=== PATIENT | female | born 1995 ===

== ENCOUNTER 2017-03-12 17:47 | Emergency (ER) | payer OTHER ==
[2017-03-12 17:47] VITALS: BMI 28.3
[2017-03-12 18:14] VITALS: BP 136/89; PULSE 72; RESP 16; TEMP 98.6; O2SAT 100
[2017-03-12] MEDS ORDERED: Morphine 4 mg/ml ISec IVP STA (19:28)
[2017-03-12 20:10] LABS: ADD MANUAL DIFF? NO
[2017-03-12 20:20] LABS: BASO # 0.02 K/mm3 (0.0-2.0); BASO % 0.3 % (0.0-3.0); EOS # 0.1 (0.0-0.7); EOS % 1.6 % (1.5-5.0); GRAN # 3.91 (1.4-6.5); GRAN % 61.8 % (50.0-68.0); HEMATOCRIT 39.5 % (36.0-48.0); LYMPH # 1.7 (1.2-3.4); LYMPH % 27.4 % (22.0-35.0); MEAN CELL VOLUME 88.8 fL (80.0-105.0); MEAN CORPUSCULAR HEMOGLOBIN 30.6 pg (25.0-35.0); MEAN CORPUSCULAR HGB CONC 34.4 g/dl (31.0-37.0); MEAN PLATELET VOLUME 10.4 fl (7.0-11.0); MONO # 0.6 (0.1-0.6); MONO % 8.9 % (1.0-6.0); PLATELET COUNT 220 10^3/uL (120.0-450.0); WHITE BLOOD COUNT 6.3 10^3/ul (4.5-11.0)
[2017-03-12 20:23] LABS: URINE APPEARANCE SL CLOUDY (CLEAR); URINE BILIRUBIN NEGATIVE (NEGATIVE); URINE BLOOD LARGE (NEGATIVE); URINE COLOR LIGHT RED (YELLOW); URINE GLUCOSE (UA) NEGATIVE (NEGATIVE); URINE KETONE TRACE mg/dL (NEGATIVE); URINE LEUKOCYTE ESTERASE TRACE Leu/uL (NEGATIVE); URINE PROTEIN 100 mg/dL (<30 mg/dL)
[2017-03-12 20:25] LABS: ALB/GLOB RATIO 1.2 (1.1-1.8); ALKALINE PHOSPHATASE 75 U/L (38-133); ALT/SGPT 28 U/L (7-56); AST/SGOT 24 U/L (15-39); BILIRUBIN,TOTAL 0.8 mg/dL (0.2-1.3); BLOOD UREA NITROGEN 10 mg/dL (7-21); CALCIUM 8.7 mg/dL (8.4-10.5); CARBON DIOXIDE 26 mmol/L (21-33); CHLORIDE 103 mmol/L (98-107); GFR AFRICAN-AMERICAN > 60; GLUCOSE,RANDOM 67 mg/dL (70-110); POTASSIUM 3.5 mmol/L (3.6-5.0); SODIUM 141 mmol/L (132-148); TOTAL PROTEIN 8.1 g/dL (5.8-8.3)
[2017-03-12 20:26] LABS: URINE BACTERIA MANY (NEG); URINE RBC TNTC /hpf (0-2)
[2017-03-12 20:27] LABS: URINE AMORPHOUS SEDIMENT FEW
--- NOTE | 2017-03-12 21:04 | ED PDOC ---
Arrival/HPI - General Chief Complaint: Female Genitourinary Time Seen by Provider: 03/12/17 19:09 Historian: Patient - History of Present Illness Narrative History of Present Illness (Text): 03/12/17 21:00 Patient complains of 1 day h/o vaginal spotting and lower abdominal pain, associated with nausea and dysuria. Otherwise: (-) vomiting, (-) diarrhea, (-) fever, (-) melena, (-) hematochezia. Of note, patient had a history of a termination of in June of last year. States that she believes she could be because she did a home test 2 weeks ago which was positive however prior to that she did have a home test that was also negative so she is not 100% sure whether she is or is not today. ELKE Browning Past Medical History - Provider Review Nursing Documentation Reviewed: Yes - Past History Past History: No Previous - Infectious Disease Hx of Infectious Diseases: None - Tetanus Immunization Tetanus Immunization: Up to Date - Reproductive Menopause: No - Past Medical History Past Medical History: No Previous - Cardiac Hx Cardiac Disorders: No - Pulmonary Hx Respiratory Disorders: Yes Hx Asthma: Yes - Neurological Hx Neurological Disorder: No - HEENT Hx HEENT Disorder: No - Renal Hx Renal Disorder: No - Endocrine/Metabolic Hx Endocrine Disorders: No - Hematological/Oncological Hx Blood Disorders: No - Integumentary Hx Dermatological Disorder: No - Musculoskeletal/Rheumatological Hx Musculoskeletal Disorders: No - Gastrointestinal Hx Gastrointestinal Disorders: No - Genitourinary/Gynecological Hx Genitourinary Disorders: No - Psychiatric Hx Psychophysiologic Disorder: No Hx Anxiety: No Hx Bipolar Disorder: No Hx Depression: No Hx Emotional Abuse: No Hx Hallucinations: No Hx Panic Disorder: No Hx Post Traumatic Stress Disorder: No Hx Psychosis: No Hx Physical Abuse: No Hx Schizophrenia: No Hx Sexual Abuse: No Hx Substance Use: No - Past Surgical History Past Surgical History: No Previous - Anesthesia Hx Anesthesia: Yes Hx Anesthesia Reactions: No Hx Malignant Hyperthermia: No - Suicidal Assessment Feels Threatened In Home Enviroment: No Family/Social History - Physician Review Nursing Documentation Reviewed: Yes Family/Social History: No Known Family HX Smoking Status: Never Smoked Hx Alcohol Use: No Hx Substance Use: No Hx Substance Use Treatment: No Allergies/Home Meds Allergies/Adverse Reactions: Allergies prochlorperazine [From Compazine] Allergy (Verified 03/12/17 18:14) RASH prochlorperazine edisylate [From Compazine] Allergy (Verified 03/12/17 18:14) RASH prochlorperazine maleate [From Compazine] Allergy (Verified 03/12/17 18:14) RASH Home Medications: Home Meds Medication Instructions Recorded Confirmed Albuterol HFA [Ventolin HFA 90 0.09 mg IH PRN PRN 03/12/17 03/12/17 mcg/actuation (8 g)] Review of Systems - Review of Systems Constitutional: Normal. absent: Fatigue, Weight Change, Fevers Respiratory: Normal. absent: SOB, Cough, Sputum Cardiovascular: Normal. absent: Chest Pain, Palpitations, Edema Gastrointestinal: Normal, Abdominal Pain, Nausea. absent: Stool Changes, Constipation Genitourinary Female: Normal, Dysuria. absent: Frequency, Hematuria Musculoskeletal: Normal. absent: Arthralgias, Back Pain, Neck Pain Skin: Normal. absent: Rash, Pruritis, Skin Lesions Physical Exam - Physical Exam Narrative Physical Exam (Text): 03/12/17 21:03 GENERAL APPEARANCE: Patient is awake, alert, oriented x 3, in mild painful distress. SKIN: Warm, dry; (-) cyanosis. EYES: (-) conjunctival pallor, (-) scleral icterus. ENMT: Mucous membranes moist. NECK: (-) tenderness, (-) stiffness, (-) lymphadenopathy. CHEST AND RESPIRATORY: (-) rales, (-) rhonchi, (-) wheezes; breath sounds equal bilaterally. HEART AND CARDIOVASCULAR: (-) irregularity; (-) murmur, (-) gallop. ABDOMEN AND GI: (-) distention. Bowel sounds active; (+) mild lower abdominal tenderness, (-) guarding, (-) rebound, (-) palpable masses, (-) CVA tenderness. EXTREMITIES: (-) deformity, (-) edema, (+) distal pulses. NEURO AND PSYCH: Mental status as above; (-) focal findings. Vital Signs Temp Pulse Resp BP Pulse Ox 03/12/17 18:09 98.6 F 72 16 136/89 100 Medical Decision Making ED Course and Treatment: 03/12/17 21:04 21 yo F presents with 1 day h/o vaginal bleeding and lower abdominal pain. Plan: -- Labs -- Uhcg -- Urinalysis -- Morphine / Zofran -- Reassess and disposition On reevaluation, patient reports improvement of pain. On exam, patient is laying in bed comfortably in no acute distress. Abdomen is soft with no tenderness. Uhcg (-). UA noted to have (+) UTI, rest of the labs reviewed and are wnl. Urine culture pending. Based on history, exam and diagnostic results plan will be for outpatient follow -up with PMD. Prescription provided. Patient states she fully agrees with and understands discharge instructions. States that she agrees with the plan and disposition. Verbalized and repeated discharge instructions and plan. I have given the patient opportunity to ask any additional questions. Follow up with primary care physician in 1-2 days without fail. Advised to take medication as prescribed. Return to the emergency room at any time for any new or worsening symptoms. - Lab Interpretations Lab Results: 03/12/17 19:55 03/12/17 19:55 Lab Results 03/12/17 20:32: Blood Type Confirm O POSITIVE 03/12/17 19:55: Blood Type O POSITIVE, Antibody Screen Negative, BBK History Checked No verified bt 03/12/17 19:55: Beta HCG, Quant < 2.39 03/12/17 19:55: Sodium 141, Potassium 3.5 L, Chloride 103, Carbon Dioxide 26, Anion Gap 16, BUN 10, Creatinine 0.6, Est GFR ( Amer) > 60, Est GFR (Non- Af Amer) > 60, Random Glucose 67 L, Calcium 8.7, Total Bilirubin 0.8, AST 24, ALT 28, Alkaline Phosphatase 75, Total Protein 8.1, Albumin 4.3, Globulin 3.7, Albumin/Globulin Ratio 1.2 03/12/17 19:55: Urine Color Light red, Urine Appearance Sl cloudy, Urine pH 7.0 , Ur Specific [place] 1.025, Urine Protein 100 H, Urine Glucose (UA) Negative, Urine Ketones Trace H, Urine Blood Large H, Urine Nitrate Negative, Urine Bilirubin Negative, Urine Urobilinogen 1.0 H, Ur Leukocyte Esterase Trace H, Urine RBC Tntc, Urine WBC 5 - 10, Ur Epithelial Cells 6 - 8, Amorphous Sediment Few, Urine Bacteria Many, Urine Other Uyeast 03/12/17 19:55: WBC 6.3, RBC 4.45, Hgb 13.6, Hct 39.5, MCV 88.8, MCH 30.6, MCHC 34.4, RDW 13.0, Plt Count 220, MPV 10.4, Gran % 61.8, Lymph % (Auto) 27.4, [place] % (Auto) 8.9 H, Eos % (Auto) 1.6, Baso % (Auto) 0.3, Gran # 3.91, Lymph # 1.7, [place] # 0.6, Eos # 0.1, Baso # 0.02 - Medication Orders Current Medication Orders: Discontinued Medications Morphine Sulfate (Morphine) 4 mg IVP STAT STA Stop: 03/12/17 19:29 Last Admin: 03/12/17 20:09 Dose: 4 mg Re-Assess: KATHARINE Pain Assessment Document 03/12/17 21:09 OCS (Rec: 03/12/17 22:31 OCS [id number]) Pain Reassessment Is this a pain reassessment? No Nitrofurantoin Macrocrystals (Macrobid) 100 mg PO ONCE ONE Stop: 03/12/17 21:08 Last Admin: 03/12/17 22:31 Dose: 100 mg Ondansetron HCl (Zofran Inj) 4 mg IVP STAT STA Stop: 03/12/17 19:29 Last Admin: 03/12/17 20:09 Dose: 4 mg - PA / RN TELE / Resident Statement / has reviewed & agrees with the documentation as recorded. Disposition/Present on Arrival - Present on Arrival Any Indicators Present on Arrival: No History of DVT/PE: No History of Uncontrolled Diabetes: No Urinary Catheter: No History of Decub. Ulcer: No History Surgical Site Infection Following: None - Disposition Have Diagnosis and Disposition been Completed?: Yes Diagnosis: Abdominal pain, UTI (urinary tract infection) Disposition: HOME/ ROUTINE Disposition Time: 21:09 Patient Plan: Discharge Condition: STABLE Discharge Instructions (ExitCare): Urinary Tract Infection in Women (ED), Acute Abdominal Pain (ED) Print Language: GIBR[place]AR[place] Additional Instructions: Thank you for letting us take care of you today. You were treated for abdominal pain, UTI. The emergency medical care you received today was directed at your acute symptoms. If you were prescribed any medication, please fill it and take as directed. It may take several days for your symptoms to resolve. Return to the Emergency Department if your symptoms worsen, do not improve, or if you have any other problems. Please contact your doctor in 2 days for re-evaluation and follow up. Bring any paperwork you were given at discharge with you along with any medications you are taking to your follow up visit. Our treatment cannot replace ongoing medical care by a primary care provider (PCP) outside of the emergency department. Thank you for allowing the [facility] team to be part of your care today. Prescriptions: Nitrofurantoin Macrocrystals [Macrobid] 100 mg PO BID #20 cap Referrals: Lai Browning [Primary Care Provider] - Follow up with primary Forms: SCHOOL NOTE, WORK NOTE
== END 2017-03-12 22:35 | disposition home or self-care (01) ==
LOC: ED 17:47
DX: N39.0 Urinary tract infection, site not specified (principal); R10.9 Unspecified abdominal pain
CPT/HCPCS: 80053; 81001; 84702; 85025; 86850; 86900; 87086; 96374; 96375; 99283; J2270; J2405

== ENCOUNTER 2017-07-17 09:14 | Observation (INO) | payer OTHER ==
[2017-07-17 09:19] VITALS: BMI 28.9
[2017-07-17 09:29] VITALS: O2SAT 100
[2017-07-17] MEDS ORDERED: Sodium Chloride 0.9% 1,000 ML IV STA (09:32)
--- NOTE | 2017-07-17 09:51 | ED PDOC ---
Arrival/HPI - General Chief Complaint: Abdominal Pain Time Seen by Provider: 07/17/17 09:31 Historian: Patient - History of Present Illness Narrative History of Present Illness (Text): 07/17/17 09:47 21-year-old female presents today with 5 day history of worsening left lower quadrant abdominal pain. Patient is complaining of nausea vomiting and many episodes of diarrhea as well as urinary frequency. She denies vaginal bleeding. She is complaining of left flank pain. Patient is complaining of dyspareunia. pt states pain started in LLQ and now is throughout the whole abdomen. Time/Duration: Other (5 days) Symptom Onset: Gradual Symptom Course: Worsening Quality: Aching Severity Level: 7 Past Medical History - Provider Review Nursing Documentation Reviewed: Yes - Travel History Have you recently traveled outside [place] w/in the past 3 mons?: No - Past History Past History: No Previous - Infectious Disease Hx of Infectious Diseases: None - Tetanus Immunization Tetanus Immunization: Up to Date - Past Medical History Past Medical History: No Previous - Cardiac Hx Cardiac Disorders: No - Pulmonary Hx Respiratory Disorders: Yes Hx Asthma: Yes - Neurological Hx Neurological Disorder: No - HEENT Hx HEENT Disorder: No - Renal Hx Renal Disorder: No - Endocrine/Metabolic Hx Endocrine Disorders: No - Hematological/Oncological Hx Blood Disorders: No - Integumentary Hx Dermatological Disorder: No - Musculoskeletal/Rheumatological Hx Musculoskeletal Disorders: No - Gastrointestinal Hx Gastrointestinal Disorders: No - Genitourinary/Gynecological Hx Genitourinary Disorders: No - Psychiatric Hx Psychophysiologic Disorder: No Hx Anxiety: No Hx Bipolar Disorder: No Hx Depression: No Hx Emotional Abuse: No Hx Hallucinations: No Hx Panic Disorder: No Hx Post Traumatic Stress Disorder: No Hx Psychosis: No Hx Physical Abuse: No Hx Schizophrenia: No Hx Sexual Abuse: No Hx Substance Use: No - Past Surgical History Past Surgical History: No Previous - Anesthesia Hx Anesthesia: Yes Hx Anesthesia Reactions: No Hx Malignant Hyperthermia: No - Suicidal Assessment Feels Threatened In Home Enviroment: No Family/Social History - Physician Review Nursing Documentation Reviewed: Yes Family/Social History: Unknown Family HX Smoking Status: Never Smoked Hx Alcohol Use: No Hx Substance Use: No Hx Substance Use Treatment: No Allergies/Home Meds Allergies/Adverse Reactions: Allergies prochlorperazine [From Compazine] Allergy (Verified 07/17/17 09:19) RASH prochlorperazine edisylate [From Compazine] Allergy (Verified 07/17/17 09:19) RASH prochlorperazine maleate [From Compazine] Allergy (Verified 07/17/17 09:19) RASH Home Medications: Home Meds Medication Instructions Recorded Confirmed Albuterol HFA [Ventolin HFA 90 0.09 mg IH PRN PRN 03/12/17 07/17/17 mcg/actuation (8 g)] Review of Systems - Review of Systems Constitutional: absent: Fatigue, Fevers Respiratory: absent: SOB, Cough Cardiovascular: absent: Chest Pain, Palpitations Gastrointestinal: Abdominal Pain, Diarrhea, Nausea, Vomiting Genitourinary Female: Frequency. absent: Dysuria, Hematuria, Urine Output Changes, Vaginal Bleeding, Vaginal Discharge Musculoskeletal: Back Pain. absent: Arthralgias, Neck Pain Skin: absent: Rash, Pruritis Neurological: absent: Headache, Dizziness Psychiatric: absent: Anxiety, Depression Physical Exam Vital Signs Reviewed: Yes Vital Signs Temp Pulse Resp BP Pulse Ox 07/17/17 13:00 65 18 118/81 100 07/17/17 11:52 63 18 116/83 100 07/17/17 11:30 79 18 132/86 100 07/17/17 09:23 98.2 F 88 19 134/95 H 100 Temperature: Afebrile Blood Pressure: Hypertensive Pulse: Regular Respiratory Rate: Normal Appearance: Positive for: Well-Appearing, Non-Toxic, Comfortable Pain Distress: None Mental Status: Positive for: Alert and Oriented X 3 - Systems Exam Head: Present: Atraumatic Mouth: Present: Moist Mucous Membranes Neck: Present: Normal Range of Motion Respiratory/Chest: Present: Clear to Auscultation, Good Air Exchange. No: Respiratory Distress, Accessory Muscle Use Cardiovascular: Present: Regular Rate and Rhythm, Normal S1, S2. No: Murmurs Abdomen: Present: Tenderness (ruq, llq suprapubic tenderness. ), Normal Bowel Sounds, Guarding. No: Distention, Peritoneal Signs Genitourinary/Pelvic Exam: Present: Normal External Genitalia, Vaginal Discharge (white discharge), Adenexal Tenderness (Left adnexal tenderness), Cervical os Closed, Other (chaparoned by Janie GEE). No: Vaginal Bleeding , Vaginal Lesions, Cervical Motion Tendernes, Odor Back: Present: Normal Inspection. No: CVA Tenderness, Midline Tenderness Upper Extremity: Present: Normal Inspection Lower Extremity: Present: Normal Inspection. No: Edema Neurological: Present: GCS=15 Skin: Present: Warm, Dry, Normal Color. No: Rashes Psychiatric: Present: Alert, Oriented x 3 Medical Decision Making ED Course and Treatment: 07/17/17 09:55 Patient is nontoxic well appearing with stable vital signs presenting with severe abdominal pain, intermittent, worsening with n/v. toradol given for pain NS iv bolus given CBC wnl CMP wnl albumin; 5.1 Lipase WNL Urinalysis wnl Ultrasound:FINDINGS: UTERUS: Measures 9.3 x 4.0 x 6.4 cm. Normal in size and appearance. No fibroid or other mass lesion seen. ENDOMETRIUM: Measures 12 mm in diameter. Unremarkable. CERVIX: No cervical abnormality identified. RIGHT OVARY: Measures 2.8 x 1.9 x 2.7 cm. No solid mass. Normal flow. Right ovarian parenchyma appears unremarkable. LEFT OVARY: Measures 3.9 x 3.9 x 4.1 cm. There is a complex cyst with numerous septations within the left ovary measuring 2.6 x 2.3 x 2.9 in total. This lesion mildly enlarges the left ovary and limited increased color Doppler blood flow seen in the periphery of the lesion. This may represent a subacute or early chronic hemorrhagic cyst although endometrioma and other etiologies are possible. Follow -up transvaginal pelvic ultrasound is advised in 6-8 weeks. Remainder left ovary appears unremarkable. Intra-ovarian arterial blood was identified and ovarian torsion is not favored. FREE FLUID: No significant free fluid noted. OTHER FINDINGS: None. IMPRESSION: 1. 2.9 cm complex cyst identified in the left ovary which corresponds well to the CT finding of a left adnexal cyst of similar size. Etiology is discussed above. Follow-up transvaginal pelvic ultrasound is advised 6-8 weeks as well as clinical correlation. 2. Remainder the examination is unremarkable. CAT scan: FINDINGS: LOWER THORAX: Unremarkable. LIVER: Unremarkable. No gross lesion or ductal dilatation. GALLBLADDER AND BILE DUCTS: Unremarkable. PANCREAS: Unremarkable. No gross lesion or ductal dilatation. SPLEEN: Unremarkable. ADRENALS: Unremarkable. No mass. KIDNEYS AND URETERS: Unremarkable. No hydronephrosis. No solid mass. VASCULATURE: Unremarkable. No aortic aneurysm. BOWEL: Evaluation the bowel is compromised by lack of oral contrast agents. No bowel obstruction measure edema, ascites or free intrarenal gas identified at this time however. APPENDIX: Appendix not identified. Fluid-filled small bowel loops in the right hemipelvis/ right lower quadrant abdomen with no definitive pattern of suggest appendicitis at this time. Clinically correlate nevertheless. PERITONEUM: As above in bowel section. LYMPH NODES: Unremarkable. No enlarged lymph nodes. BLADDER: Unremarkable. REPRODUCTIVE: A left adnexal cyst measures 3.1 x 2.3 cm with the bilateral adnexal compartments otherwise unremarkable. Inhomogeneous enhancement is seen in the uterus corresponding to a complex cyst seen in ultrasound exam also performed . Please see separate report. BONES: No acute fracture. OTHER FINDINGS: None. IMPRESSION: 1. 3.1 cm cyst is identified at the left adnexal compartment which is better seen in separate transvaginal pelvic ultrasound also performed 07/17/2017 where it appears to be a complex cyst. Please see separate report. 2. No bowel or urinary tract obstruction, free intrarenal gas or ascites. 3. Appendix not identified. No definitive CT pattern appendicitis at this time however clinical correlation is advised. Patient reassessment: pt with continued pain, morphine and zofran given. pt seen and evaluated by dr. xiong; case discussed with dr. mota in depth; regarding large ovarian cyst with intractable abdominal pain. He will see the patient in the hospital today after office hours. case discussed with dr. oquendo accepts observational status admission with [employer] DEPARTMENT OPERATOR consult (dr. Mota). Discussed all results with patient in depth impression; intractable abdominal pain observational status to med/surg with WHE[employer] DEPARTMENT OPERATOR consult. - Lab Interpretations Lab Results: 07/17/17 09:56 07/17/17 09:56 Lab Results 07/17/17 09:56: WBC 6.8, RBC 4.72, Hgb 14.3, Hct 40.6, MCV 86.0, MCH 30.3, MCHC 35.2, RDW 12.7, Plt Count 218, MPV 9.7, Gran % 68.2 H, Lymph % (Auto) 21.0 L, [place] % (Auto) 10.3 H, Eos % (Auto) 0.4 L, Baso % (Auto) 0.1, Gran # 4.63, Lymph # 1.4, [place] # 0.7 H, Eos # 0.0, Baso # 0.01 07/17/17 09:56: Sodium 141, Potassium 3.9, Chloride 102, Carbon Dioxide 25, Anion Gap 18, BUN 10, Creatinine 0.7, Est GFR ( Amer) > 60, Est GFR (Non- Af Amer) > 60, Random Glucose 85, Calcium 9.5, Total Bilirubin 1.9 H, AST 22, ALT 25, Alkaline Phosphatase 84, Total Protein 8.1, Albumin 5.1 H, Globulin 3.0 , Albumin/Globulin Ratio 1.7, Lipase 26 07/17/17 09:50: Urine Color Yellow, Urine Appearance Clear, Urine pH 6.0, Ur Specific [place] >= 1.030, Urine Protein Negative, Urine Glucose (UA) Negative, Urine Ketones Negative, Urine Blood Negative, Urine Nitrate Negative, Urine Bilirubin Negative, Urine Urobilinogen 0.2, Ur Leukocyte Esterase Negative - RAD Interpretation Radiology Orders: 07/17/17 09:51 CHEST PORTABLE [RAD] Stat 07/17/17 10:07 ABD & PELVIS IV CONTRAST ONLY [CT] Stat 07/17/17 10:51 TRANSVAGINAL [US] Stat - Medication Orders Current Medication Orders: Discontinued Medications Sodium Chloride (Sodium Chloride 0.9%) 1,000 mls @ 999 mls/hr IV .Q1H1M STA Stop: 07/17/17 10:32 Last Admin: 07/17/17 10:00 Dose: 999 mls/hr Iohexol (Omnipaque 350 100 Ml) Confirm Administered Dose 350 mg .ROUTE .STK-MED ONE Stop: 07/17/17 10:59 Ketorolac Tromethamine (Toradol) 30 mg IVP STAT STA Stop: 07/17/17 10:09 Last Admin: 07/17/17 10:53 Dose: 30 mg Re-Assess: MAR Pain Assessment Document 07/17/17 11:53 OCS (Rec: 07/17/17 12:37 OCS [id number]) Pain Reassessment Is this a pain reassessment? Yes Sleep Is patient sleeping during reassessment? Yes Morphine Sulfate (Morphine) 4 mg IVP STAT STA Stop: 07/17/17 13:35 Last Admin: 07/17/17 13:50 Dose: 4 mg Ondansetron HCl (Zofran Inj) 4 mg IVP STAT STA Stop: 07/17/17 13:35 Last Admin: 07/17/17 13:50 Dose: 4 mg Disposition/Present on Arrival - Present on Arrival Any Indicators Present on Arrival: No History of DVT/PE: No History of Uncontrolled Diabetes: No Urinary Catheter: No History of Decub. Ulcer: No History Surgical Site Infection Following: None - Disposition Have Diagnosis and Disposition been Completed?: Yes Diagnosis: Intractable abdominal pain, Ovarian cyst Disposition: HOSPITALIZED Disposition Time: 14:00 Patient Plan: Observation Patient Problems: Current Active Problems Problem Status Onset Intractable abdominal pain Acute Ovarian cyst Acute Condition: FAIR
[2017-07-17 10:07] LABS: URINE BILIRUBIN NEGATIVE (NEGATIVE); URINE BLOOD NEGATIVE (NEGATIVE); URINE GLUCOSE (UA) NEGATIVE (NEGATIVE); URINE KETONE NEGATIVE (NEGATIVE); URINE LEUKOCYTE ESTERASE NEGATIVE Leu/uL (NEGATIVE); URINE PROTEIN NEGATIVE mg/dL (<30 mg/dL); URINE UROBILINOGEN 0.2 E.U./dL (<1 E.U./dL)
[2017-07-17 10:08] LABS: URINE APPEARANCE CLEAR (CLEAR); URINE COLOR YELLOW (YELLOW)
[2017-07-17 10:13] LABS: BASO # 0.01 K/mm3 (0.0-2.0); BASO % 0.1 % (0.0-3.0); EOS % 0.4 % (1.5-5.0); GRAN # 4.63 (1.4-6.5); GRAN % 68.2 % (50.0-68.0); HEMATOCRIT 40.6 % (36.0-48.0); LYMPH # 1.4 (1.2-3.4); MEAN CORPUSCULAR HEMOGLOBIN 30.3 pg (25.0-35.0); MEAN CORPUSCULAR HGB CONC 35.2 g/dl (31.0-37.0); MEAN PLATELET VOLUME 9.7 fl (7.0-11.0); MONO # 0.7 (0.1-0.6); MONO % 10.3 % (1.0-6.0); RED CELL DISTRIBUTION WIDTH 12.7 % (11.5-14.5); WHITE BLOOD COUNT 6.8 10^3/ul (4.5-11.0)
[2017-07-17 10:18] LABS: ALB/GLOB RATIO 1.7 (1.1-1.8); ALKALINE PHOSPHATASE 84 U/L (38-133); ALT/SGPT 25 U/L (7-56); AST/SGOT 22 U/L (15-39); BILIRUBIN,TOTAL 1.9 mg/dL (0.2-1.3); BLOOD UREA NITROGEN 10 mg/dL (7-21); CALCIUM 9.5 mg/dL (8.4-10.5); CARBON DIOXIDE 25 mmol/L (21-33); CHLORIDE 102 mmol/L (98-107); GFR AFRICAN-AMERICAN > 60; GLUCOSE,RANDOM 85 mg/dL (70-110); LIPASE 26 U/L (23-300); POTASSIUM 3.9 mmol/L (3.6-5.0); SODIUM 141 mmol/L (132-148); TOTAL PROTEIN 8.1 g/dL (5.8-8.3)
[2017-07-17] MEDS ORDERED: Iohexol 350 MG/100 ML VIAL ONE (10:58)
--- NOTE | 2017-07-17 11:08 | RAD ---
HISTORY: diffuse abdominal tenderness COMPARISON: No prior. FINDINGS: LUNGS: No active pulmonary disease. PLEURA: No significant pleural effusion identified, no pneumothorax apparent. CARDIOVASCULAR: Normal. OSSEOUS STRUCTURES: No significant abnormalities. VISUALIZED UPPER ABDOMEN: Normal. OTHER FINDINGS: None. IMPRESSION: No active disease.
--- NOTE | 2017-07-17 12:27 | CT ---
PROCEDURE: CT Abdomen and Pelvis with contrast HISTORY: abd pain COMPARISON: None. TECHNIQUE: Contrast dose: Omnipaque 350, 100 cc Radiation dose: Total exam DLP = 553 mGy-cm. This CT exam was performed using one or more of the following dose reduction techniques: Automated exposure control, adjustment of the mA and/or kV according to patient size, and/or use of iterative reconstruction technique. FINDINGS: LOWER THORAX: Unremarkable. LIVER: Unremarkable. No gross lesion or ductal dilatation. GALLBLADDER AND BILE DUCTS: Unremarkable. PANCREAS: Unremarkable. No gross lesion or ductal dilatation. SPLEEN: Unremarkable. ADRENALS: Unremarkable. No mass. KIDNEYS AND URETERS: Unremarkable. No hydronephrosis. No solid mass. VASCULATURE: Unremarkable. No aortic aneurysm. BOWEL: Evaluation the bowel is compromised by lack of oral contrast agents. No bowel obstruction measure edema, ascites or free intrarenal gas identified at this time however. APPENDIX: Appendix not identified. Fluid-filled small bowel loops in the right hemipelvis/right lower quadrant abdomen with no definitive pattern of suggest appendicitis at this time. Clinically correlate nevertheless. PERITONEUM: As above in bowel section. LYMPH NODES: Unremarkable. No enlarged lymph nodes. BLADDER: Unremarkable. REPRODUCTIVE: A left adnexal cyst measures 3.1 x 2.3 cm with the bilateral adnexal compartments otherwise unremarkable. Inhomogeneous enhancement is seen in the uterus corresponding to a complex cyst seen in ultrasound exam also performed 07/17/2017. Please see separate report. BONES: No acute fracture. OTHER FINDINGS: None. IMPRESSION: 1. 3.1 cm cyst is identified at the left adnexal compartment which is better seen in separate transvaginal pelvic ultrasound also performed 07/17/2017 where it appears to be a complex cyst. Please see separate report. 2. No bowel or urinary tract obstruction, free intrarenal gas or ascites. 3. Appendix not identified. No definitive CT pattern appendicitis at this time however clinical correlation is advised.
--- NOTE | 2017-07-17 12:33 | US ---
HISTORY: pelvic pain/llq COMPARISON: CT examination 07/17/2017 TECHNIQUE: Transvaginal pelvic ultrasonography was performed with supplementary transabdominal technique also performed. FINDINGS: UTERUS: Measures 9.3 x 4.0 x 6.4 cm. Normal in size and appearance. No fibroid or other mass lesion seen. ENDOMETRIUM: Measures 12 mm in diameter. Unremarkable. CERVIX: No cervical abnormality identified. RIGHT OVARY: Measures 2.8 x 1.9 x 2.7 cm. No solid mass. Normal flow. Right ovarian parenchyma appears unremarkable. LEFT OVARY: Measures 3.9 x 3.9 x 4.1 cm. There is a complex cyst with numerous septations within the left ovary measuring 2.6 x 2.3 x 2.9 in total. This lesion mildly enlarges the left ovary and limited increased color Doppler blood flow seen in the periphery of the lesion. This may represent a subacute or early chronic hemorrhagic cyst although endometrioma and other etiologies are possible. Follow-up transvaginal pelvic ultrasound is advised in 6-8 weeks. Remainder left ovary appears unremarkable. Intra-ovarian arterial blood was identified and ovarian torsion is not favored. FREE FLUID: No significant free fluid noted. OTHER FINDINGS: None. IMPRESSION: 1. 2.9 cm complex cyst identified in the left ovary which corresponds well to the CT finding of a left adnexal cyst of similar size. Etiology is discussed above. Follow-up transvaginal pelvic ultrasound is advised 6-8 weeks as well as clinical correlation. 2. Remainder the examination is unremarkable.
[2017-07-17] MEDS ORDERED: Morphine 4 mg/ml ISec IVP STA (13:34)
[2017-07-17] MEDS ORDERED: Albuterol HFA 90 mcg/actuation (8 g) IH PRN (15:33)
[2017-07-17] MEDS ORDERED: Morphine 2 mg/ml ISec IVP PRN (15:35)
[2017-07-17] MEDS ORDERED: Albuterol 0.083% Inhal Sol (2.5 mg/3 mL) UD IH PRN (15:40)
[2017-07-17] MEDS ORDERED: Pneumococcal 23-Valent Vaccine IM ONE (15:44)
[2017-07-17] MEDS: Sodium Chloride 0.9% 1,000 ML IV SCH (15:52)
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
--- NOTE | 2017-07-17 19:26 | CP.PCM.CON ---
History of Present Illness - History of Present Illness History of Present Illness: Called to see a 21yo , admitted earlier for symptoms with gastroenteritis. The CT scan and Pelvic sonogram had depicted an normal sized ovarian cyst. Pt reports that is the first episode of above. She denies any recent h/o STD, She is sexually active without contraception. No history of pelvic surgery except an elective Ab X1. Pt reports that pain has subsided since she was admitted. Review of Systems - Reproductive: Female Reproductive:Female: Menses 1-7 Days, Normal Menses Past Patient History - Infectious Disease Hx of Infectious Diseases: None - Tetanus Immunizations Tetanus Immunization: Up to Date - Past Social History Smoking Status: Never Smoked - CARDIAC Hx Cardiac Disorders: No - PULMONARY Hx Respiratory Disorders: Yes Hx Asthma: Yes - NEUROLOGICAL Hx Neurological Disorder: No - HEENT Hx HEENT Problems: No - RENAL Hx Chronic Kidney Disease: No - ENDOCRINE/METABOLIC Hx Endocrine Disorders: No - HEMATOLOGICAL/ONCOLOGICAL Hx Blood Disorders: No - INTEGUMENTARY Hx Dermatological Problems: No - MUSCULOSKELETAL/RHEUMATOLOGICAL Hx Musculoskeletal Disorders: No - GASTROINTESTINAL Hx Gastrointestinal Disorders: No - GENITOURINARY/GYNECOLOGICAL Hx Genitourinary Disorders: No - PSYCHIATRIC Hx Psychophysiologic Disorder: No Hx Anxiety: No Hx Bipolar Disorder: No Hx Depression: No Hx Emotional Abuse: No Hx Hallucinations: No Hx Panic Symptoms: No Hx Post Traumatic Stress Disorder: No Hx Psychosis: No Hx Physical Abuse: No Hx Schizophrenia: No Hx Sexual Abuse: No Hx Substance Use: No - SURGICAL HISTORY Hx Surgeries: No - ANESTHESIA Hx Anesthesia: Yes Hx Anesthesia Reactions: No Hx Malignant Hyperthermia: No Meds Allergies/Adverse Reactions: Allergies Allergy/AdvReac Type Severity Reaction Status Date / Time prochlorperazine Allergy RASH Verified 07/17/17 09:19 [From Compazine] prochlorperazine edisylate Allergy RASH Verified 07/17/17 09:19 [From Compazine] prochlorperazine maleate Allergy RASH Verified 07/17/17 09:19 [From Compazine] - Medications Medications: Current Medications Albuterol Sulfate (Albuterol 0.083% Inhal Josey (2.5 Mg/3 Ml) Ud) 2.5 mg IH [id number] PRN PRN Reason: Cough and congestion Docusate Sodium (Colace) 100 mg PO DAILY RUPERT Famotidine (Pepcid) 20 mg PO 1000,2200 [facility] Sodium Chloride (Sodium Chloride 0.9%) 1,000 mls @ 100 mls/hr IV .Q10H RUPERT Last Admin: 07/17/17 15:52 Dose: 100 mls/hr Morphine Sulfate (Morphine) 1 mg IVP STAT PRN PRN Reason: Pain, moderate (4-7) Ondansetron HCl (Zofran Inj) 4 mg IVP Q4H PRN PRN Reason: Nausea/Vomiting Physical Exam - Respiratory Exam Respiratory Exam: Clear to Auscultation Bilateral, NORMAL BREATHING PATTERN - Cardiovascular Exam Cardiovascular Exam: REGULAR RHYTHM - GI/Abdominal Exam GI & Abdominal Exam: Normal Bowel Sounds Additional comments: No rebound tenderness - Exam Exam: NORMAL INSPECTION External exam: NORMAL EXTERNAL EXAM Bimanual exam: NORMAL BIMANUAL EXAM Additional comments: Negative cervical motion Tenderness - Extremities Exam Extremities exam: Positive for: normal inspection - Neurological Exam Neurological exam: Alert, Oriented x3 Results - Vital Signs Recent Vital Signs: Last Vital Signs Temp 98.5 F 07/17/17 16:00 Pulse 62 07/17/17 16:00 Resp 18 07/17/17 16:00 BP 118/74 07/17/17 16:00 Pulse Ox 100 07/17/17 16:00 - Labs Result Diagrams: 07/17/17 09:56 07/17/17 09:56 Assessment & Plan - Assessment and Plan (Free Text) 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 Gynecologically cleared for discharge. F/U with Dr Mota, [address] [place] [address]. Phone- [phone]; - Date & Time Date: 07/17/17 Time: 19:31
[2017-07-18] MEDS: Sodium Chloride 0.9% 1,000 ML IV SCH (03:00)
[2017-07-18 07:44] LABS: BASO # 0.01 K/mm3 (0.0-2.0); BASO % 0.2 % (0.0-3.0); EOS # 0.1 (0.0-0.7); EOS % 1.5 % (1.5-5.0); GRAN % 55.3 % (50.0-68.0); HEMATOCRIT 37.3 % (36.0-48.0); LYMPH # 1.8 (1.2-3.4); LYMPH % 33.6 % (22.0-35.0); MEAN CELL VOLUME 88.2 fl (80.0-105.0); MEAN CORPUSCULAR HEMOGLOBIN 29.6 pg (25.0-35.0); MEAN CORPUSCULAR HGB CONC 33.5 g/dl (31.0-37.0); MEAN PLATELET VOLUME 9.7 fl (7.0-11.0); MONO # 0.5 (0.1-0.6); MONO % 9.4 % (1.0-6.0); RED CELL DISTRIBUTION WIDTH 12.9 % (11.5-14.5); WHITE BLOOD COUNT 5.4 10^3/ul (4.5-11.0)
[2017-07-18 07:57] LABS: BLOOD UREA NITROGEN 9 mg/dL (7-21); CALCIUM 8.3 mg/dL (8.4-10.5); CARBON DIOXIDE 25 mmol/L (21-33); CHLORIDE 107 mmol/L (98-107); GFR AFRICAN-AMERICAN > 60; GLUCOSE,RANDOM 68 mg/dL (70-110); POTASSIUM 3.8 mmol/L (3.6-5.0); SODIUM 141 mmol/L (132-148)
[2017-07-18 08:27] VITALS: BP 113/67; PULSE 57; RESP 20; TEMP 98.7
[2017-07-18] MEDS ORDERED: Morphine 2 mg/ml ISec IVP STA (14:44)
[2017-07-18] MEDS ORDERED: Naproxen 275 mg Tab PO STA (14:59)
--- NOTE | 2017-07-18 15:46 | CP.PCM.DIS ---
<David Venegas - Last Filed: 07/19/17 17:29> Provider - Provider Date of Admission: 07/17/17 13:51 Attending physician: Angela Flowers MD Primary care physician: NO PRIMARY CARE PROVIDER Consults: Dr. Svetlana CHAUDHARY Time Spent in preparation of Discharge (in minutes): 33 Hospital Course - Lab Results Lab Results: Most Recent Lab Values WBC 5.4 10^3/ul (4.5-11.0) D 07/18/17 06:45 RBC 4.23 10^6/uL (3.5-6.1) 07/18/17 06:45 Hgb 12.5 g/dL (12.0-16.0) 07/18/17 06:45 Hct 37.3 % (36.0-48.0) 07/18/17 06:45 MCV 88.2 fl (80.0-105.0) 07/18/17 06:45 MCH 29.6 pg (25.0-35.0) 07/18/17 06:45 MCHC 33.5 g/dl (31.0-37.0) 07/18/17 06:45 RDW 12.9 % (11.5-14.5) 07/18/17 06:45 Plt Count 175 10^3/uL (120.0-450.0) 07/18/17 06:45 MPV 9.7 fl (7.0-11.0) 07/18/17 06:45 Gran % 55.3 % (50.0-68.0) 07/18/17 06:45 Lymph % (Auto) 33.6 % (22.0-35.0) 07/18/17 06:45 [place] % (Auto) 9.4 % (1.0-6.0) H 07/18/17 06:45 Eos % (Auto) 1.5 % (1.5-5.0) 07/18/17 06:45 Baso % (Auto) 0.2 % (0.0-3.0) 07/18/17 06:45 Gran # 3.00 (1.4-6.5) 07/18/17 06:45 Lymph # 1.8 (1.2-3.4) 07/18/17 06:45 [place] # 0.5 (0.1-0.6) 07/18/17 06:45 Eos # 0.1 (0.0-0.7) 07/18/17 06:45 Baso # 0.01 K/mm3 (0.0-2.0) 07/18/17 06:45 Sodium 141 mmol/L (132-148) 07/18/17 06:45 Potassium 3.8 mmol/L (3.6-5.0) 07/18/17 06:45 Chloride 107 mmol/L (98-107) 07/18/17 06:45 Carbon Dioxide 25 mmol/L (21-33) 07/18/17 06:45 Anion Gap 13 (10-20) 07/18/17 06:45 BUN 9 mg/dL (7-21) 07/18/17 06:45 Creatinine 0.7 mg/dL (0.5-1.4) 07/18/17 06:45 Est GFR ( Amer) > 60 07/18/17 06:45 Est GFR (Non-Af Amer) > 60 07/18/17 06:45 Random Glucose 68 mg/dL (70-110) L 07/18/17 06:45 Calcium 8.3 mg/dL (8.4-10.5) L 07/18/17 06:45 Total Bilirubin 1.9 mg/dL (0.2-1.3) H 07/17/17 09:56 AST 22 U/L (15-39) 07/17/17 09:56 ALT 25 U/L (7-56) 07/17/17 09:56 Alkaline Phosphatase 84 U/L (38-133) 07/17/17 09:56 Total Protein 8.1 g/dL (5.8-8.3) 07/17/17 09:56 Albumin 5.1 g/dL (3.0-4.8) H 07/17/17 09:56 Globulin 3.0 gm/dL 07/17/17 09:56 Albumin/Globulin Ratio 1.7 (1.1-1.8) 07/17/17 09:56 Lipase 26 U/L (23-300) 07/17/17 09:56 Urine Color Yellow (YELLOW) 07/17/17 09:50 Urine Appearance Clear (CLEAR) 07/17/17 09:50 Urine pH 6.0 (4.7-8.0) 07/17/17 09:50 Ur Specific [place] >= 1.030 (1.005-1.035) 07/17/17 09:50 Urine Protein Negative mg/dL (<30 mg/dL) 07/17/17 09:50 Urine Glucose (UA) Negative mg/dL (NEGATIVE) 07/17/17 09:50 Urine Ketones Negative mg/dL (NEGATIVE) 07/17/17 09:50 Urine Blood Negative (NEGATIVE) 07/17/17 09:50 Urine Nitrate Negative (NEGATIVE) 07/17/17 09:50 Urine Bilirubin Negative (NEGATIVE) 07/17/17 09:50 Urine Urobilinogen 0.2 E.U./dL (<1 E.U./dL) 07/17/17 09:50 Ur Leukocyte Esterase Negative Tam/uL (NEGATIVE) 07/17/17 09:50 - Hospital Course Hospital Course: 21 year old female with a past medical history of asthma, elective (14- 16 weeks gestation last year in June) who presents with (one week of diarrhea , dysuria,) and 5 days of LLQ pain and now nausea and vomiting since this morning She reports this past Saturday she developed LLQ pain that was originally intermittent and 3/10 in severity, that has gradually increased to a 10/10 and become constant. She also admits to dyspareunia, specifically with deep penetration, starting this Saturday. Initial labs and imaging, including, but not limited to, revealed no leukocytosis, bilirubin of 1.9, and CT A/P showing left adnexal cyst that was better characterized by TVUS as a 2.9 cm complex cyst that mildly enlarges the left ovary and (demonstrates) limited increased color Doppler blood flow seen in the periphery of the lesion. This may represent a subacute or early chronic hemorrhagic cyst although endometrioma and other etiologies are possible. Follow -up transvaginal pelvic ultrasound is advised in 6-8 weeks. Remainder left ovary appears unremarkable. Intra-ovarian arterial blood was identified and ovarian torsion is not favored. The patient was admitted under observation status, treated with analgesia , anti-emetics, and kept NPO. OBGYN saw the patient the and she was cleared for discharge with OTC Naproxen for pain with strict follow-up instructions to see JET Perry, in regards to the symptomatic left ovarian cyst. - Date & Time of H&P Date of H&P: 07/19/17 Time of H&P: 17:34 Discharge Exam - Head Exam Head Exam: ATRAUMATIC, NORMOCEPHALIC - Eye Exam Eye Exam: EOMI, Normal appearance, PERRL - ENT Exam ENT Exam: Mucous Membranes Moist, Normal Oropharynx - Neck Exam Neck exam: Normal Inspection - Respiratory Exam Respiratory Exam: Clear to PA & Lateral, NORMAL BREATHING PATTERN. absent: Wheezes - Cardiovascular Exam Cardiovascular Exam: REGULAR RHYTHM, +S1, +S2 - GI/Abdominal Exam GI & Abdominal Exam: Hypoactive Bowel Sounds, Tenderness (LLQ) - Exam Exam: NORMAL INSPECTION - Extremities Exam Extremities exam: normal capillary refill, normal inspection, pedal pulses present - Back Exam Back exam: NORMAL INSPECTION. absent: CVA tenderness (L), CVA tenderness (R) - Neurological Exam Neurological exam: Alert, CN II-XII Intact, Oriented x3 - Psychiatric Exam Psychiatric exam: Anxious, Normal Affect, Normal Mood - Skin Skin Exam: Dry, Intact, Normal Color, Warm Discharge Plan - Follow Up Plan Condition: FAIR Disposition: HOME/ ROUTINE Instructions: Ovarian Cyst (DC), Ovarian Cyst (GEN) Additional Instructions: PATIENT TO FOLLOW UP WITH PCP. 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 ANY NEW ONSET OF SYMPTOMS SUCH BLEEDING, NAUSEA, VOMITING, DIZZINESS, REPORT BACK TO THE ER IMMEDIATELY. Referrals: Amado Mota [Medical Doctor] - 7 Days <Selwyn Nolan - Last Filed: 08/12/17 10:55> Provider - Provider Date of Admission: 07/17/17 13:51 Attending physician: Angela Flowers MD Primary care physician: NO PRIMARY CARE PROVIDER Hospital Course - Lab Results Lab Results: Most Recent Lab Values WBC 5.4 10^3/ul (4.5-11.0) D 07/18/17 06:45 RBC 4.23 10^6/uL (3.5-6.1) 07/18/17 06:45 Hgb 12.5 g/dL (12.0-16.0) 07/18/17 06:45 Hct 37.3 % (36.0-48.0) 07/18/17 06:45 MCV 88.2 fl (80.0-105.0) 07/18/17 06:45 MCH 29.6 pg (25.0-35.0) 07/18/17 06:45 MCHC 33.5 g/dl (31.0-37.0) 07/18/17 06:45 RDW 12.9 % (11.5-14.5) 07/18/17 06:45 Plt Count 175 10^3/uL (120.0-450.0) 07/18/17 06:45 MPV 9.7 fl (7.0-11.0) 07/18/17 06:45 Gran % 55.3 % (50.0-68.0) 07/18/17 06:45 Lymph % (Auto) 33.6 % (22.0-35.0) 07/18/17 06:45 [place] % (Auto) 9.4 % (1.0-6.0) H 07/18/17 06:45 Eos % (Auto) 1.5 % (1.5-5.0) 07/18/17 06:45 Baso % (Auto) 0.2 % (0.0-3.0) 07/18/17 06:45 Gran # 3.00 (1.4-6.5) 07/18/17 06:45 Lymph # 1.8 (1.2-3.4) 07/18/17 06:45 [place] # 0.5 (0.1-0.6) 07/18/17 06:45 Eos # 0.1 (0.0-0.7) 07/18/17 06:45 Baso # 0.01 K/mm3 (0.0-2.0) 07/18/17 06:45 Sodium 141 mmol/L (132-148) 07/18/17 06:45 Potassium 3.8 mmol/L (3.6-5.0) 07/18/17 06:45 Chloride 107 mmol/L (98-107) 07/18/17 06:45 Carbon Dioxide 25 mmol/L (21-33) 07/18/17 06:45 Anion Gap 13 (10-20) 07/18/17 06:45 BUN 9 mg/dL (7-21) 07/18/17 06:45 Creatinine 0.7 mg/dL (0.5-1.4) 07/18/17 06:45 Est GFR ( Amer) > 60 07/18/17 06:45 Est GFR (Non-Af Amer) > 60 07/18/17 06:45 Random Glucose 68 mg/dL (70-110) L 07/18/17 06:45 Calcium 8.3 mg/dL (8.4-10.5) L 07/18/17 06:45 Total Bilirubin 1.9 mg/dL (0.2-1.3) H 07/17/17 09:56 AST 22 U/L (15-39) 07/17/17 09:56 ALT 25 U/L (7-56) 07/17/17 09:56 Alkaline Phosphatase 84 U/L (38-133) 07/17/17 09:56 Total Protein 8.1 g/dL (5.8-8.3) 07/17/17 09:56 Albumin 5.1 g/dL (3.0-4.8) H 07/17/17 09:56 Globulin 3.0 gm/dL 07/17/17 09:56 Albumin/Globulin Ratio 1.7 (1.1-1.8) 07/17/17 09:56 Lipase 26 U/L (23-300) 07/17/17 09:56 Urine Color Yellow (YELLOW) 07/17/17 09:50 Urine Appearance Clear (CLEAR) 07/17/17 09:50 Urine pH 6.0 (4.7-8.0) 07/17/17 09:50 Ur Specific [place] >= 1.030 (1.005-1.035) 07/17/17 09:50 Urine Protein Negative mg/dL (<30 mg/dL) 07/17/17 09:50 Urine Glucose (UA) Negative mg/dL (NEGATIVE) 07/17/17 09:50 Urine Ketones Negative mg/dL (NEGATIVE) 07/17/17 09:50 Urine Blood Negative (NEGATIVE) 07/17/17 09:50 Urine Nitrate Negative (NEGATIVE) 07/17/17 09:50 Urine Bilirubin Negative (NEGATIVE) 07/17/17 09:50 Urine Urobilinogen 0.2 E.U./dL (<1 E.U./dL) 07/17/17 09:50 Ur Leukocyte Esterase Negative Tam/uL (NEGATIVE) 07/17/17 09:50 C.trachomatis RNA (TMA) Not detected (Not Detected) 07/17/17 09:50 N.gonorrhoeae RNA (TMA) Not detected (Not Detected) 07/17/17 09:50 Attending/Attestation - Attestation I have personally seen and examined this patient.: Yes I have fully participated in the care of the patient.: Yes I have reviewed all pertinent clinical information, including history, physical exam and plan: Yes Notes (Text): The patient was admitted under observation status, treated with analgesia, anti- emetics, and kept NPO. OBGYN saw the patient the and she was cleared for discharge with OTC Naproxen for pain with strict follow-up instructions to see JET Perry, in regards to the symptomatic left ovarian cyst.
== END 2017-07-18 18:12 | disposition home or self-care (01) ==
LOC: ED 09:14 → ERH 13:51 → 3RSO 14:59
PROVIDERS: ADMIT Internal Medicine; ATTEND Internal Medicine
DX: R10.32 Left lower quadrant pain (principal); N83.202 Unspecified ovarian cyst, left side; K52.9 Noninfective gastroenteritis and colitis, unspecified; J45.909 Unspecified asthma, uncomplicated; R30.0 Dysuria; N94.10 Unspecified dyspareunia
CPT/HCPCS: 36415; 71010; 74177; 76830; 80048; 80053; 81003; 83690; 85025; 87491; 87591; 96361; 96374; 96375; 96376; 99285; G0378; J1885; J2270; J2405; J7040; Q9967

== ENCOUNTER 2017-09-13 08:54 | Emergency (ER) | payer OTHER ==
[2017-09-13 08:55] VITALS: BMI 28.9
[2017-09-13 09:20] VITALS: BP 118/80; PULSE 74; RESP 16; TEMP 97.9; O2SAT 100
--- NOTE | 2017-09-13 09:22 | ED PDOC ---
Arrival/HPI - General Chief Complaint: ENT Problem Time Seen by Provider: 09/13/17 09:06 Historian: Patient - History of Present Illness Narrative History of Present Illness (Text): 09/13/17 09:19 A 22 year old female, whose past medical history includes asthma, presents to the emergency department with 2 day duration sore throat and headache. The patient denies any sick contacts, fevers, chills, dizziness, chest pain, shortness of breath, dyspnea on exertion, cough, abdominal pain, nausea, vomiting, diarrhea, back pain, neck pain, urinary/bowel changes, or any other complaint. Time/Duration: Other (2 Days) Symptom Onset: Sudden Symptom Course: Unchanged Activities at Onset: Rest, Light Context: Home Past Medical History - Provider Review Nursing Documentation Reviewed: Yes - Past History Past History: No Previous - Infectious Disease Hx of Infectious Diseases: None - Tetanus Immunization Tetanus Immunization: Up to Date - Past Medical History Past Medical History: No Previous - Cardiac Hx Cardiac Disorders: No - Pulmonary Hx Respiratory Disorders: Yes Hx Asthma: Yes - Neurological Hx Neurological Disorder: No - HEENT Hx HEENT Disorder: No - Renal Hx Renal Disorder: No - Endocrine/Metabolic Hx Endocrine Disorders: No - Hematological/Oncological Hx Blood Disorders: No - Integumentary Hx Dermatological Disorder: No - Musculoskeletal/Rheumatological Hx Musculoskeletal Disorders: No - Gastrointestinal Hx Gastrointestinal Disorders: No - Genitourinary/Gynecological Hx Genitourinary Disorders: No - Psychiatric Hx Psychophysiologic Disorder: No Hx Anxiety: No Hx Bipolar Disorder: No Hx Depression: No Hx Emotional Abuse: No Hx Hallucinations: No Hx Panic Disorder: No Hx Post Traumatic Stress Disorder: No Hx Psychosis: No Hx Physical Abuse: No Hx Schizophrenia: No Hx Sexual Abuse: No Hx Substance Use: No - Past Surgical History Past Surgical History: No Previous - Anesthesia Hx Anesthesia: Yes Hx Anesthesia Reactions: No Hx Malignant Hyperthermia: No - Suicidal Assessment Feels Threatened In Home Enviroment: No Family/Social History - Physician Review Nursing Documentation Reviewed: Yes Family/Social History: No Known Family HX Smoking Status: Never Smoked Hx Alcohol Use: No Hx Substance Use: No Hx Substance Use Treatment: No Allergies/Home Meds Allergies/Adverse Reactions: Allergies cephalexin [From Keflex] Allergy (Verified 09/13/17 09:03) RASH prochlorperazine [From Compazine] Allergy (Verified 09/13/17 09:03) RASH prochlorperazine edisylate [From Compazine] Allergy (Verified 09/13/17 09:03) RASH prochlorperazine maleate [From Compazine] Allergy (Verified 09/13/17 09:03) RASH Home Medications: Home Meds Medication Instructions Recorded Confirmed Albuterol HFA [Ventolin HFA 90 0.09 mg IH PRN PRN 03/12/17 09/13/17 mcg/actuation (8 g)] Review of Systems - Physician Review All systems were reviewed & negative as marked: Yes - Review of Systems Constitutional: absent: Fevers, Night Sweats ENT: Sore Throat Respiratory: absent: SOB, Cough Cardiovascular: absent: Chest Pain, [place] Gastrointestinal: absent: Abdominal Pain, Stool Changes, Diarrhea, Nausea, Vomiting Genitourinary Female: absent: Urine Output Changes Musculoskeletal: absent: Back Pain, Neck Pain Neurological: Headache. absent: Dizziness Physical Exam Vital Signs Reviewed: Yes Vital Signs Temp Pulse Resp BP Pulse Ox 09/13/17 09:03 97.9 F 74 16 118/80 100 Temperature: Afebrile Blood Pressure: Normal Pulse: Regular Respiratory Rate: Normal Appearance: Positive for: Well-Appearing, Non-Toxic, Comfortable Pain Distress: None Mental Status: Positive for: Alert and Oriented X 3 - Systems Exam Head: Present: Atraumatic, Normocephalic Pupils: Present: PERRL Extroacular Muscles: Present: EOMI Conjunctiva: Present: Normal Mouth: Present: Moist Mucous Membranes Pharnyx: Present: ERYTHEMA (mild erythema) Neck: Present: Normal Range of Motion Respiratory/Chest: Present: Clear to Auscultation, Good Air Exchange. No: Respiratory Distress, Accessory Muscle Use Cardiovascular: Present: Regular Rate and Rhythm, Normal S1, S2. No: Murmurs Abdomen: Present: Normal Bowel Sounds. No: Tenderness, Distention, Peritoneal Signs Back: Present: Normal Inspection Upper Extremity: Present: Normal Inspection. No: Cyanosis, Edema Lower Extremity: Present: Normal Inspection. No: Edema Neurological: Present: GCS=15, CN II-XII Intact, Speech Normal Skin: Present: Warm, Dry, Normal Color. No: Rashes Psychiatric: Present: Alert, Oriented x 3, Normal Insight, Normal Concentration Medical Decision Making ED Course and Treatment: 09/13/17 09:25 Impression: A 22 year old female present to the emergency department with 2 day duration headache and sore throat. Plan: -- Reassess and disposition Prior Visits: Notes and results from previous visits were reviewed. Patient was last seen in the emergency department on 07/17/17. The patient was seen for 5 day duration left lower quadrant abdominal pain. The patient was hospitalized. Progress Notes: 09/13/17 09:51 pt speaking full sentences, no unilateral swelling, hot pototo voice. sea captain less likely. advise outpt fu and return precautions - Lab Interpretations Lab Results: Lab Results 09/13/17 09:25: Grp A Beta Strep Ag Negative - Medication Orders Current Medication Orders: Discontinued Medications Acetaminophen (Tylenol 325mg Tab) 975 mg PO STAT STA Stop: 09/13/17 09:42 - Scribe Statement The provider has reviewed the documentation as recorded by the Scribe Sakshi Gambino Provider Scribe Attestation: All medical record entries made by the Scribe were at my direction and personally dictated by me. I have reviewed the chart and agree that the record accurately reflects my personal performance of the history, physical exam, medical decision making, and the department course for this patient. I have also personally directed, reviewed, and agree with the discharge instructions and disposition. Disposition/Present on Arrival - Present on Arrival Any Indicators Present on Arrival: No History of DVT/PE: No History of Uncontrolled Diabetes: No Urinary Catheter: No History of Decub. Ulcer: No History Surgical Site Infection Following: None - Disposition Have Diagnosis and Disposition been Completed?: Yes Diagnosis: Pharyngitis Disposition: HOME/ ROUTINE Disposition Time: 10:00 Patient Problems: Current Active Problems Problem Status Onset Pharyngitis Acute Condition: STABLE Discharge Instructions (ExitCare): Pharyngitis (ED), Viral Syndrome (ED) Additional Instructions: please follow up withyour doctor/clinic. return to er with worseningsymptoms or concerns. Prescriptions: Ibuprofen [Motrin Tab] 400 mg PO Q6 PRN #20 tab PRN Reason: Pain, Mild (1-3) Referrals: Lai Browning [Primary Care Provider] - Follow up with primary Forms: [employer] ([employer])
== END 2017-09-13 10:06 | disposition home or self-care (01) ==
LOC: ED 08:54
DX: J02.9 Acute pharyngitis, unspecified (principal); J45.909 Unspecified asthma, uncomplicated

== ENCOUNTER 2017-12-31 15:19 | Emergency (ER) | payer MEDICAID, OTHER ==
[2017-12-31 15:20] VITALS: BMI 28.9
[2017-12-31] MEDS ORDERED: Sodium Chloride 0.9% 1,000 ML IV STA (15:42)
[2017-12-31] MEDS ORDERED: Albuterol 0.083% Inhal Sol (2.5 mg/3 mL) UD IH STA (15:54)
--- NOTE | 2017-12-31 15:56 | ED PDOC ---
Arrival/HPI - General Chief Complaint: Flu-like Symptoms Time Seen by Provider: 12/31/17 15:22 Historian: Patient - History of Present Illness Narrative History of Present Illness (Text): 12/31/17 15:53 [id number] female presents today with flulike symptoms since Last night. Patient states last night she started to develop body aches, fevers, chills, headache, cough and nasal congestion. Patient states she has a history of asthma. Patient states she used her nebulizer last night. Patient states she feels weak. She denies chest pain or shortness of breath. patient is complaining of nausea. States she vomited 3 times today. Patient denies abdominal pain. No medications have been taken at home. Patient states she did not get her flu shot this year. No other complaints Symptom Onset: Gradual Symptom Course: Worsening Quality: Aching Severity Level: 5 Past Medical History - Provider Review Nursing Documentation Reviewed: Yes - Travel History Have you recently traveled outside [place] w/in the past 3 mons?: No - Past History Past History: No Previous - Infectious Disease Hx of Infectious Diseases: None - Tetanus Immunization Tetanus Immunization: Up to Date - Cardiac Hx Cardiac Disorders: No - Pulmonary Hx Respiratory Disorders: Yes Hx Asthma: Yes - Neurological Hx Neurological Disorder: No - HEENT Hx HEENT Disorder: No - Renal Hx Renal Disorder: No - Endocrine/Metabolic Hx Endocrine Disorders: No - Hematological/Oncological Hx Blood Disorders: No - Integumentary Hx Dermatological Disorder: No - Musculoskeletal/Rheumatological Hx Musculoskeletal Disorders: No - Gastrointestinal Hx Gastrointestinal Disorders: No - Genitourinary/Gynecological Hx Genitourinary Disorders: No - Psychiatric Hx Psychophysiologic Disorder: No Hx Anxiety: No Hx Bipolar Disorder: No Hx Depression: No Hx Emotional Abuse: No Hx Hallucinations: No Hx Panic Disorder: No Hx Post Traumatic Stress Disorder: No Hx Psychosis: No Hx Physical Abuse: No Hx Schizophrenia: No Hx Sexual Abuse: No Hx Substance Use: No - Past Surgical History Past Surgical History: No Previous - Anesthesia Hx Anesthesia: Yes Hx Anesthesia Reactions: No Hx Malignant Hyperthermia: No - Suicidal Assessment Feels Threatened In Home Enviroment: No Family/Social History - Physician Review Nursing Documentation Reviewed: Yes Family/Social History: Unknown Family HX Smoking Status: Never Smoked Hx Alcohol Use: No Hx Substance Use: No Hx Substance Use Treatment: No Allergies/Home Meds Allergies/Adverse Reactions: Allergies cephalexin [From Keflex] Allergy (Verified 12/31/17 15:33) RASH prochlorperazine [From Compazine] Allergy (Verified 12/31/17 15:33) RASH prochlorperazine edisylate [From Compazine] Allergy (Verified 12/31/17 15:33) RASH prochlorperazine maleate [From Compazine] Allergy (Verified 12/31/17 15:33) RASH Home Medications: Home Meds Medication Instructions Recorded Confirmed Albuterol HFA [Ventolin HFA 90 0.09 mg IH PRN PRN 03/12/17 12/31/17 mcg/actuation (8 g)] Review of Systems - Review of Systems Constitutional: Fatigue, Fevers ENT: Sore Throat, Sinus Congestion Respiratory: Cough. absent: SOB Cardiovascular: absent: Chest Pain, Palpitations Gastrointestinal: Nausea, Vomiting. absent: Abdominal Pain, Constipation, Diarrhea Genitourinary Female: absent: Dysuria Musculoskeletal: Other (bodyaches). absent: Back Pain, Neck Pain Skin: absent: Rash, Pruritis Neurological: Headache, Dizziness Psychiatric: absent: Anxiety, Depression Physical Exam Vital Signs Reviewed: Yes Vital Signs Temp Pulse Resp BP Pulse Ox 12/31/17 18:03 99.0 F 96 H 18 107/67 100 12/31/17 15:34 99.9 F H 100 H 22 127/79 97 Temperature: Afebrile Blood Pressure: Normal Pulse: Tachycardic Respiratory Rate: Normal Appearance: Positive for: Well-Appearing, Non-Toxic, Comfortable Pain Distress: None Mental Status: Positive for: Alert and Oriented X 3 - Systems Exam Head: Present: Atraumatic Ears: Present: Normal, NORMAL TM Mouth: Present: Moist Mucous Membranes. No: Drooling, Trismus Pharnyx: Present: Normal. No: ERYTHEMA, EXUDATE, TONSILS ENLARGED, Peritonsilar Swelling, Uvular Deviation, Muffled/Hoarse Voice Nose (External): Present: Atraumatic Nose (Internal): Present: Normal Inspection Neck: Present: Normal Range of Motion, Trachea Midline Respiratory/Chest: Present: Clear to Auscultation, Good Air Exchange. No: Respiratory Distress, Accessory Muscle Use Cardiovascular: Present: Regular Rate and Rhythm, Normal S1, S2. No: Murmurs Abdomen: Present: Normal Bowel Sounds. No: Tenderness, Distention, Peritoneal Signs, Rebound, Guarding Back: Present: Normal Inspection Upper Extremity: Present: Normal ROM Lower Extremity: Present: Normal ROM Neurological: Present: GCS=15, Speech Normal Skin: Present: Warm, Dry, Normal Color. No: Rashes Psychiatric: Present: Alert, Oriented x 3 Medical Decision Making ED Course and Treatment: 12/31/17 15:57 Patient is nontoxic well-appearing. C/o flu-like symptoms. tylenol PO cbc; wnl cmp; wnl cxr: no infiltrate - as read by the radiologist rapid flu; negative Motrin po Tamiflu po Patient reassessment: Pt feeling better; vitals stable. discussed all results with patient. pt with negative flu test; pt with flu like symptoms/ hx of asthma; will treat with tamiflu. I advised follow up with primary care physician within the next 2 days. I advised increase fluids and return if symptoms worsen persist or if new symptoms develop Patient verbalizes understanding of discharge instructions and need for immediate followup. all aspects of this case were discussed the attending of record. IMPRESSION; Influenza Motrin every 6 hours as needed for pain/fever Tamiflu: 1 capsule twice daily 5 days use albuterol nebulizer 3 times daily as needed for cough. Increase fluids Followup with primary care physician the next 2 days Return if symptoms worsen persist or if new symptoms develop: Continued high fevers, dizziness, weakness, chest pain or shortness of breath vomiting/diarrhea , or if any other concerning symptoms develop - Lab Interpretations Lab Results: 12/31/17 16:00 12/31/17 16:00 Lab Results 12/31/17 17:10: Urine Color Yellow, Urine Appearance Sl cloudy, Urine pH 8.0, Ur Specific [place] 1.015, Urine Protein Trace H, Urine Glucose (UA) Negative, Urine Ketones 15 H, Urine Blood Negative, Urine Nitrate Negative, Urine Bilirubin Negative, Urine Urobilinogen 0.2, Ur Leukocyte Esterase Negative, Urine RBC 0 - 2, Urine WBC 1 - 3, Ur Epithelial Cells 3 - 4, Urine Bacteria Large 12/31/17 16:00: WBC 7.4 D, RBC 4.72, Hgb 14.1, Hct 42.2, MCV 89.4, MCH 29.9, MCHC 33.4, RDW 12.9, Plt Count 182, MPV 9.8, Gran % 83.8 H, Lymph % (Auto) 6.4 L , [place] % (Auto) 9.0 H, Eos % (Auto) 0.7 L, Baso % (Auto) 0.1, Gran # 6.17, Lymph # (Auto) 0.5 L, [place] # (Auto) 0.7 H, Eos # (Auto) 0.1, Baso # (Auto) 0.01 12/31/17 16:00: Sodium 139, Potassium 3.8, Chloride 101, Carbon Dioxide 26, Anion Gap 16, BUN 12, Creatinine 0.9, Est GFR ( Amer) > 60, Est GFR (Non- Af Amer) > 60, Random Glucose 87, Calcium 10.0, Total Bilirubin 1.5 H, AST 36, ALT 35, Alkaline Phosphatase 70, Total Protein 8.1, Albumin 4.9 H, Globulin 3.2 , Albumin/Globulin Ratio 1.5 12/31/17 16:00: Influenza Typ A,B (EIA) Negative for flu a/b - RAD Interpretation Radiology Orders: 12/31/17 15:42 CHEST TWO VIEWS (PA/LAT) [RAD] Stat - Medication Orders Current Medication Orders: Discontinued Medications Acetaminophen (Tylenol 325mg Tab) 975 mg PO STAT STA Stop: 12/31/17 15:43 Last Admin: 12/31/17 16:00 Dose: 975 mg MAR Pain/Vitals Document 12/31/17 16:00 CAST (Rec: 12/31/17 16:00 [id number]) Pain Reassessment Is This A Pain ReAssessment? No Sleep Is patient sleeping during reassessment? No Presence of Pain Presence of Pain Yes Pain Scale Used Pain Scale Used Numeric Location Pain Location Body Site Generalized Description Constant Intensity 6 Scale Used Numeric Pain Behavior Facial Grimacing Aggravating Factors Changing Position Alleviating Factors Medication Albuterol Sulfate (Albuterol 0.083% Inhal Josey (2.5 Mg/3 Ml) Ud) 2.5 mg IH STAT STA Stop: 12/31/17 15:55 Last Admin: 12/31/17 16:01 Dose: 2.5 mg Sodium Chloride (Sodium Chloride 0.9%) 1,000 mls @ 999 mls/hr IV .Q1H1M STA Stop: 12/31/17 16:42 Last Admin: 12/31/17 16:01 Dose: 999 mls/hr eMAR Start Stop Document 12/31/17 16:01 [email or web address] (Rec: 12/31/17 16:[id number]) Intravenous Solution Start Date 12/31/17 Start Time 16:02 End Date 12/31/17 Ibuprofen (Motrin Tab) 600 mg PO STAT STA Stop: 12/31/17 17:25 Last Admin: 12/31/17 17:49 Dose: 600 mg MAR Pain/Vitals Document 12/31/17 17:49 [email or web address] (Rec: 12/31/17 17:[id number]) Pain Reassessment Is This A Pain ReAssessment? No Sleep Is patient sleeping during reassessment? No Presence of Pain Presence of Pain Yes Pain Scale Used Pain Scale Used Numeric Location Pain Location Body Site Generalized Description Constant Intensity 8 Scale Used Numeric Pain Behavior Facial Grimacing Aggravating Factors Changing Position Alleviating Factors Medication Oseltamivir Phosphate (Tamiflu Cap) 75 mg PO STAT STA PRN Reason: Protocol Stop: 12/31/17 17:54 Last Admin: 12/31/17 18:03 Dose: 75 mg Disposition/Present on Arrival - Present on Arrival Any Indicators Present on Arrival: No History of DVT/PE: No History of Uncontrolled Diabetes: No Urinary Catheter: No History of Decub. Ulcer: No History Surgical Site Infection Following: None - Disposition Have Diagnosis and Disposition been Completed?: Yes Diagnosis: Influenza-like illness Disposition: HOME/ ROUTINE Disposition Time: 18:09 Patient Plan: Discharge Condition: GOOD Discharge Instructions (ExitCare): Influenza (ED) Additional Instructions: Motrin every 6 hours as needed for pain/fever Tamiflu: 1 capsule twice daily 5 days use albuterol nebulizer 3 times daily as needed for cough. Increase fluids Followup with primary care physician the next 2 days Return if symptoms worsen persist or if new symptoms develop: Continued high fevers, dizziness, weakness, chest pain or shortness of breath vomiting/diarrhea , or if any other concerning symptoms develop Prescriptions: Albuterol HFA [Ventolin HFA 90 mcg/actuation (8 g)] 2 puff IH [id number] PRN #1 inhaler PRN Reason: Cough Albuterol 0.083% [Albuterol 0.083% Inhal Josey (2.5 mg/3 ml) UD] 1 vial IH TID PRN #1 packet PRN Reason: Cough Ibuprofen [Motrin] 600 mg PO Q6H PRN #20 tab PRN Reason: pain/fever reduction Oseltamivir [Tamiflu] 75 mg PO BID #10 cap Referrals: Araceli Parra MD [Primary Care Provider] - Follow up with primary Lai Browning [Medical Doctor] - Follow up with primary Nolan Lion DO [Staff Provider] - Follow up with primary Forms: [employer] (Telugu), WORK NOTE
[2017-12-31 16:12] LABS: BASO # 0.01 K/mm3 (0.0-2.0); BASO % 0.1 % (0.0-3.0); EOS # 0.1 (0.0-0.7); EOS % 0.7 % (1.5-5.0); GRAN # 6.17 (1.4-6.5); GRAN % 83.8 % (50.0-68.0); HEMOGLOBIN 14.1 g/dL (12.0-16.0); LYMPH # 0.5 (1.2-3.4); LYMPH % 6.4 % (22.0-35.0); MEAN CELL VOLUME 89.4 fl (80.0-105.0); MEAN CORPUSCULAR HEMOGLOBIN 29.9 pg (25.0-35.0); MEAN CORPUSCULAR HGB CONC 33.4 g/dl (31.0-37.0); MEAN PLATELET VOLUME 9.8 fl (7.0-11.0); MONO # 0.7 (0.1-0.6); RBC 4.72 10^6/uL (3.5-6.1); RED CELL DISTRIBUTION WIDTH 12.9 % (11.5-14.5); WHITE BLOOD COUNT 7.4 10^3/ul (4.5-11.0)
[2017-12-31 16:23] LABS: ALB/GLOB RATIO 1.5 (1.1-1.8); ALBUMIN 4.9 g/dL (3.0-4.8); ALT/SGPT 35 U/L (7-56); AST/SGOT 36 U/L (14-36); BLOOD UREA NITROGEN 12 mg/dL (7-21); GFR AFRICAN-AMERICAN > 60; GFR NON-AFRICAN AMERICAN > 60
--- NOTE | 2017-12-31 16:39 | RAD ---
HISTORY: Cough. COMPARISON: 07/17/2017. TECHNIQUE: Chest PA and lateral FINDINGS: LUNGS: No active pulmonary disease. PLEURA: No significant pleural effusion identified. No pneumothorax apparent. CARDIOVASCULAR: Normal. OSSEOUS STRUCTURES: No significant abnormalities. VISUALIZED UPPER ABDOMEN: Normal. OTHER FINDINGS: None. IMPRESSION: No active disease. No significant interval change compared to the prior examination(s).
[2017-12-31 17:41] LABS: URINE BILIRUBIN NEGATIVE (NEGATIVE); URINE BLOOD NEGATIVE (NEGATIVE); URINE GLUCOSE (UA) NEGATIVE (NEGATIVE); URINE LEUKOCYTE ESTERASE NEGATIVE Leu/uL (NEGATIVE); URINE NITRATE NEGATIVE (NEGATIVE); URINE PROTEIN TRACE mg/dL (<30 mg/dL); URINE UROBILINOGEN 0.2 E.U./dL (<1 E.U./dL)
[2017-12-31 17:45] LABS: URINE APPEARANCE SL CLOUDY (CLEAR); URINE COLOR YELLOW (YELLOW)
[2017-12-31 17:53] LABS: URINE RBC 0 - 2 /hpf (0-2)
[2017-12-31 17:54] LABS: URINE BACTERIA LARGE (NEG)
[2017-12-31 18:04] VITALS: BP 107/67; PULSE 96; RESP 18; TEMP 99; O2SAT 100
== END 2017-12-31 18:17 | disposition home or self-care (01) ==
LOC: ED 15:19
DX: J11.1 Influenza due to unidentified influenza virus with other respiratory manifestations (principal)
CPT/HCPCS: 71046; 80053; 81001; 85025; 87804; 99284; J7040

== ENCOUNTER 2018-03-10 16:14 | Emergency (ER) | payer SELFPAY ==
[2018-03-10 17:00] VITALS: BP 129/83; PULSE 86; RESP 18; TEMP 98; O2SAT 100; BMI 30.2
--- NOTE | 2018-03-10 17:04 | ED PDOC ---
Arrival/HPI - General Time Seen by Provider: 03/10/18 16:30 Historian: Patient - History of Present Illness Narrative History of Present Illness (Text): 03/10/18 16:55 22yo female with PMhx of endometriosis and ovarian cyst who present with complaint of pelvic pain since this morning. she states her period started this morning and she usually have same pain with her period secondary to her medical history. States her pain usually improves whenever she comes to ED and gets unknown injection for pain. States she took 2tabs of OTC Ibuprofen earlier at home today with some relieve. she denies nausea, vomiting, diarrhea, dysuria, fever, chills, back pain, any other complaint. Past Medical History - Provider Review Nursing Documentation Reviewed: Yes - Past History Past History: No Previous - Infectious Disease Hx of Infectious Diseases: None - Tetanus Immunization Tetanus Immunization: Up to Date - Cardiac Hx Cardiac Disorders: No - Pulmonary Hx Respiratory Disorders: Yes Hx Asthma: Yes - Neurological Hx Neurological Disorder: No - HEENT Hx HEENT Disorder: No - Renal Hx Renal Disorder: No - Endocrine/Metabolic Hx Endocrine Disorders: No - Hematological/Oncological Hx Blood Disorders: No - Integumentary Hx Dermatological Disorder: No - Musculoskeletal/Rheumatological Hx Musculoskeletal Disorders: No - Gastrointestinal Hx Gastrointestinal Disorders: No - Genitourinary/Gynecological Hx Genitourinary Disorders: No - Psychiatric Hx Psychophysiologic Disorder: No Hx Anxiety: No Hx Bipolar Disorder: No Hx Depression: No Hx Emotional Abuse: No Hx Hallucinations: No Hx Panic Disorder: No Hx Post Traumatic Stress Disorder: No Hx Psychosis: No Hx Physical Abuse: No Hx Schizophrenia: No Hx Sexual Abuse: No Hx Substance Use: No - Past Surgical History Past Surgical History: No Previous - Anesthesia Hx Anesthesia: Yes Hx Anesthesia Reactions: No Hx Malignant Hyperthermia: No - Suicidal Assessment Feels Threatened In Home Enviroment: No Family/Social History - Physician Review Nursing Documentation Reviewed: Yes Family/Social History: Unknown Family HX Smoking Status: Never Smoked Hx Alcohol Use: No Hx Substance Use: No Hx Substance Use Treatment: No Allergies/Home Meds Allergies/Adverse Reactions: Allergies cephalexin [From Keflex] Allergy (Verified 12/31/17 15:33) RASH prochlorperazine [From Compazine] Allergy (Verified 12/31/17 15:33) RASH prochlorperazine edisylate [From Compazine] Allergy (Verified 12/31/17 15:33) RASH prochlorperazine maleate [From Compazine] Allergy (Verified 12/31/17 15:33) RASH Review of Systems - Physician Review All systems were reviewed & negative as marked: Yes - Review of Systems Constitutional: Normal Eyes: Normal ENT: Normal Respiratory: Normal Cardiovascular: Normal Gastrointestinal: Abdominal Pain. absent: Constipation, Diarrhea, Nausea, Vomiting, Hematochezia, Hematemesis Genitourinary Female: Normal Musculoskeletal: Normal Skin: Normal Neurological: Normal Endocrine: Normal Hemo/Lymphatic: Normal Psychiatric: Normal Physical Exam Vital Signs Reviewed: Yes Vital Signs Temp Pulse Resp BP Pulse Ox 03/10/18 16:35 98.0 F 86 18 129/83 100 Temperature: Afebrile Blood Pressure: Normal Pulse: Regular Respiratory Rate: Normal Appearance: Positive for: Well-Appearing, Non-Toxic, Comfortable Pain Distress: None Mental Status: Positive for: Alert and Oriented X 3 - Systems Exam Head: Present: Atraumatic, Normocephalic Pupils: Present: PERRL Extroacular Muscles: Present: EOMI Conjunctiva: Present: Normal Mouth: Present: Moist Mucous Membranes Neck: Present: Normal Range of Motion Respiratory/Chest: Present: Clear to Auscultation, Good Air Exchange. No: Respiratory Distress, Accessory Muscle Use Cardiovascular: Present: Regular Rate and Rhythm, Normal S1, S2. No: Murmurs Abdomen: Present: Tenderness (PElvic), Other (Soft). No: Distention, Peritoneal Signs, Rebound, Guarding, McBurney's Point Tender, Rovsing's Sign Present Back: Present: Normal Inspection Upper Extremity: Present: Normal Inspection. No: Cyanosis, Edema Lower Extremity: Present: Normal Inspection. No: Edema Neurological: Present: GCS=15, CN II-XII Intact, Speech Normal Skin: Present: Warm, Dry, Normal Color. No: Rashes Psychiatric: Present: Alert, Oriented x 3, Normal Insight, Normal Concentration Medical Decision Making ED Course and Treatment: 03/10/18 18:47 Pt presented for stated history. On re evaluation she notes that her pain resolved in ED with Toradol. 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 - Lab Interpretations Lab Results: Lab Results 03/10/18 17:11: Urine Color Yellow, Urine Appearance Sl cloudy, Urine pH 6.5, Ur Specific [place] 1.020, Urine Protein 100 H, Urine Glucose (UA) Negative, Urine Ketones Negative, Urine Blood Large H, Urine Nitrate Negative, Urine Bilirubin Negative, Urine Urobilinogen 0.2, Ur Leukocyte Esterase Negative, Urine RBC 25 - 30, Urine WBC 1 - 3, Ur Epithelial Cells 3 - 4, Amorphous Sediment Few, Urine Bacteria Many - Medication Orders Current Medication Orders: Discontinued Medications Ketorolac Tromethamine (Toradol) 60 mg IM STAT STA Stop: 03/10/18 16:56 Last Admin: 03/10/18 17:18 Dose: 60 mg MAR Pain Assessment Document 03/10/18 17:18 LA (Rec: 03/10/18 17:20 [id number] Pain Reassessment Is this a pain reassessment? No Sleep Is patient sleeping during reassessment? No Presence of Pain Presence of Pain Yes Pain Scale Used Pain Scale Used Numeric Location Pain Location Body Site Abdomen Description Description Cramping Pain Behavior Guarding IM Administration Charges Document 03/10/18 17:18 LA (Rec: 03/10/18 17:20 [id number] Injection Site MAR Injection Site Left Gluteus Jhony Charges for Administration # of IM Administrations 1 Disposition/Present on Arrival - Present on Arrival Any Indicators Present on Arrival: No History of DVT/PE: No History of Uncontrolled Diabetes: No Urinary Catheter: No History Surgical Site Infection Following: None - Disposition Have Diagnosis and Disposition been Completed?: Yes Diagnosis: Dysmenorrhea Disposition: HOME/ ROUTINE Disposition Time: 18:00 Patient Plan: Discharge Condition: STABLE Discharge Instructions (ExitCare): Menstrual Cramps (DC) Additional Instructions: Follow 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
[2018-03-10 17:35] LABS: PH,URINE 6.5 (4.7-8.0); URINE BILIRUBIN NEGATIVE (NEGATIVE); URINE BLOOD LARGE (NEGATIVE); URINE GLUCOSE (UA) NEGATIVE (NEGATIVE); URINE LEUKOCYTE ESTERASE NEGATIVE Leu/uL (NEGATIVE); URINE PROTEIN 100 mg/dL (<30 mg/dL); URINE UROBILINOGEN 0.2 E.U./dL (<1 E.U./dL)
[2018-03-10 17:57] LABS: URINE APPEARANCE SL CLOUDY (CLEAR); URINE COLOR YELLOW (YELLOW)
[2018-03-10 18:00] LABS: URINE AMORPHOUS SEDIMENT FEW; URINE BACTERIA MANY (NEG); URINE RBC 25 - 30 /hpf (0-2)
== END 2018-03-10 18:10 | disposition home or self-care (01) ==
LOC: ED 16:14
DX: N94.6 Dysmenorrhea, unspecified (principal)
CPT/HCPCS: 81001; 96372; 99283; J1885

== ENCOUNTER 2018-04-13 15:34 | Inpatient (IN) | payer MEDICAID, OTHER ==
[2018-04-13] MEDS ORDERED: Sodium Chloride 0.9% 1,000 ML IV STA (16:23)
--- NOTE | 2018-04-13 16:40 | ED PDOC ---
Arrival/HPI - General Chief Complaint: Female Genitourinary Time Seen by Provider: 04/13/18 15:49 Historian: Patient - History of Present Illness Narrative History of Present Illness (Text): 04/13/18 16:30 22-year-old female presents today with nausea vomiting and left-sided abdominal pain and left-sided back pain. Patient was diagnosed one week ago with urinary tract infection and was placed on antibiotics for 7 days. Patient states she completed the course of antibiotics but the symptoms have not resolved. Patient states a week ago she was only having dysuria and urinary frequency. Patient states she is now having sharp stabbing left-sided abdominal pain radiating to the left flank with associated nausea and vomiting. Patient complaining of subjective fevers at home. Denies chest pain or shortness of breath. Denies dizziness. No other complaints patient states she took Tylenol for pain today without improvement. Time/Duration: > week Symptom Onset: Gradual Symptom Course: Worsening Quality: Stabbing Severity Level: 10 Past Medical History - Provider Review Nursing Documentation Reviewed: Yes - Travel History Have you recently traveled outside [place] w/in the past 3 mons?: No - Past History Past History: No Previous - Infectious Disease Hx of Infectious Diseases: None - Tetanus Immunization Tetanus Immunization: Up to Date - Cardiac Hx Cardiac Disorders: No - Pulmonary Hx Respiratory Disorders: Yes Hx Asthma: Yes - Neurological Hx Neurological Disorder: No - HEENT Hx HEENT Disorder: No - Renal Hx Renal Disorder: No - Endocrine/Metabolic Hx Endocrine Disorders: No - Hematological/Oncological Hx Blood Disorders: No - Integumentary Hx Dermatological Disorder: No - Musculoskeletal/Rheumatological Hx Musculoskeletal Disorders: No - Gastrointestinal Hx Gastrointestinal Disorders: No - Genitourinary/Gynecological Hx Genitourinary Disorders: No - Psychiatric Hx Psychophysiologic Disorder: No Hx Anxiety: No Hx Bipolar Disorder: No Hx Depression: No Hx Emotional Abuse: No Hx Hallucinations: No Hx Panic Disorder: No Hx Post Traumatic Stress Disorder: No Hx Psychosis: No Hx Physical Abuse: No Hx Schizophrenia: No Hx Sexual Abuse: No Hx Substance Use: No - Past Surgical History Past Surgical History: No Previous - Anesthesia Hx Anesthesia: Yes Hx Anesthesia Reactions: No Hx Malignant Hyperthermia: No - Suicidal Assessment Feels Threatened In Home Enviroment: No Family/Social History - Physician Review Nursing Documentation Reviewed: Yes Family/Social History: Unknown Family HX Smoking Status: Never Smoked Hx Alcohol Use: No Hx Substance Use: No Hx Substance Use Treatment: No Allergies/Home Meds Allergies/Adverse Reactions: Allergies cephalexin [From Keflex] Allergy (Verified 04/13/18 15:46) RASH prochlorperazine [From Compazine] Allergy (Verified 04/13/18 15:46) RASH prochlorperazine edisylate [From Compazine] Allergy (Verified 04/13/18 15:46) RASH prochlorperazine maleate [From Compazine] Allergy (Verified 04/13/18 15:46) RASH Review of Systems - Review of Systems Constitutional: Fevers. absent: Fatigue Respiratory: absent: SOB, Cough Cardiovascular: absent: Chest Pain, Palpitations Gastrointestinal: Abdominal Pain, Nausea, Vomiting. absent: Constipation, Diarrhea Genitourinary Female: Dysuria, Frequency. absent: Hematuria, Vaginal Bleeding, Vaginal Discharge Musculoskeletal: Back Pain. absent: Arthralgias, Neck Pain Skin: absent: Rash, Pruritis Neurological: absent: Headache, Dizziness Psychiatric: absent: Anxiety, Depression Physical Exam Vital Signs Reviewed: Yes Vital Signs Temp Pulse Resp BP Pulse Ox 04/13/18 19:36 98.1 F 75 18 130/72 100 04/13/18 17:41 98.5 F 69 18 129/75 100 04/13/18 15:43 99.2 F 80 18 123/85 99 Temperature: Afebrile Blood Pressure: Normal Pulse: Regular Respiratory Rate: Normal Appearance: Positive for: Well-Appearing, Non-Toxic, Comfortable Pain Distress: None Mental Status: Positive for: Alert and Oriented X 3 - Systems Exam Head: Present: Atraumatic Mouth: Present: Moist Mucous Membranes Neck: Present: Normal Range of Motion Respiratory/Chest: Present: Clear to Auscultation, Good Air Exchange. No: Respiratory Distress, Accessory Muscle Use Cardiovascular: Present: Regular Rate and Rhythm, Normal S1, S2. No: Murmurs Abdomen: Present: Tenderness (LUQ, LLQ tenderness), Normal Bowel Sounds, Guarding. No: Distention, Peritoneal Signs, Rebound Back: Present: Normal Inspection, CVA Tenderness, Paraspinal Tenderness (left sided flank tenderness). No: Midline Tenderness Upper Extremity: Present: Normal ROM Lower Extremity: Present: Normal ROM Neurological: Present: GCS=15, Speech Normal Skin: Present: Warm, Dry, Normal Color. No: Rashes Psychiatric: Present: Alert, Oriented x 3 Medical Decision Making ED Course and Treatment: 04/13/18 16:40 Patient is nontoxic well appearing with stable vital signs presenting with left sided abdominal pain and flank pain with vomiting. 1 week hx of UTI. CBC: wnl CMP wnl Lipase wnl Urinalysis + leukocytes, + bacteria, CAT scan:FINDINGS: Lung bases: No mass. No consolidation. ABDOMEN: Liver: No mass. Gallbladder and bile ducts: No calcified stones. No ductal dilation. Pancreas: Normal contour, without acute peripancreatic stranding. Spleen: Multiple small hypodense cysts or lesions are identified at the periphery of the spleen superiorly. One of the larger lesions measures 1.0 x 0.7 cm. Similar findings are visualized on the prior study. A splenule is visualized. Adrenals: No mass. Kidneys and ureters: There is new left perinephric stranding. There is stranding of the fat surrounding the proximal left ureter and left renal pelvis with mild wall thickening of the left renal pelvis. These findings are likely infectious or inflammatory, although additional pathology cannot be excluded. Stomach and bowel: There is stranding of the fat posterior to the uterus and adjacent to the rectosigmoid junction. A small diverticulum is visualized in this region, suggestive of diverticulitis. This is visualized on series 3 image 148. PELVIS: Appendix: The appendix is not visualized. Bladder: No mass. Reproductive: Hypodense follicles are visualized within the bilateral ovaries. There is a small hypodense lesion at the level of the cervix, suggestive of a nabothian cyst. This is stable. ABDOMEN and PELVIS: Intraperitoneal space: No free air. Bones/joints: There is developmental narrowing of the spinal canal within the lower lumbar spine. Vasculature: No abdominal aortic aneurysm. Lymph nodes: No enlarged lymph nodes. IMPRESSION: 1. There is new left perinephric stranding. There is stranding of the fat surrounding the proximal left ureter and left renal pelvis with mild wall thickening of the left renal pelvis. These findings are likely infectious or inflammatory, although additional pathology cannot be excluded. Clinical correlation is recommended. 2. Multiple small hypodense cysts or lesions are identified at the periphery of the spleen superiorly. Similar findings are visualized on the prior study. 3. There is stranding of the fat posterior to the uterus and adjacent to the rectosigmoid junction. A small diverticulum is visualized in this region, suggestive of diverticulitis. 4. Additional CT findings described above. Patient reassessment:pt with continued pain; morphine added. levaquin given IV. flagyl added IV after CT findings of diverticulitis Discussed all results with patient in depth case discussed with medicine team; accepts admission. Impression: pyelonephritis, failure of outpatient abx, diverticulitis admit to med/surg - Lab Interpretations Lab Results: 04/13/18 16:30 04/13/18 17:00 Lab Results 04/13/18 17:00: Sodium 142, Potassium 4.4, Chloride 108 H, Carbon Dioxide 23, Anion Gap 15, BUN 6 L, Creatinine 0.6 L, Est GFR ( Amer) > 60, Est GFR ( Non-Af Amer) > 60, Random Glucose 83, Calcium 8.0 L, Total Bilirubin 0.7, AST 19 , ALT 24, Alkaline Phosphatase 63, Total Protein 6.6, Albumin 3.8, Globulin 2.8 , Albumin/Globulin Ratio 1.4, Lipase 13 L 04/13/18 16:30: Urine Color Yellow, Urine Appearance Clear, Urine pH 7.0, Ur Specific [place] 1.010, Urine Protein 30 H, Urine Glucose (UA) Negative, Urine Ketones Negative, Urine Blood Small H, Urine Nitrate Negative, Urine Bilirubin Negative, Urine Urobilinogen 0.2, Ur Leukocyte Esterase Large H, Urine RBC 5 - 10, Urine WBC 25 - 30, Ur Epithelial Cells 4 - 5, Urine Bacteria Many, Urine Other [place]yeast 04/13/18 16:30: WBC 9.6 D, RBC 4.58, Hgb 13.5, Hct 40.2, MCV 87.8, MCH 29.5, MCHC 33.6, RDW 13.0, Plt Count 198, MPV 10.2, Gran % 81.1 H, Lymph % (Auto) 11.1 L, [place] % (Auto) 7.3 H, Eos % (Auto) 0.4 L, Baso % (Auto) 0.1, Gran # 7.81 H, Lymph # (Auto) 1.1 L, [place] # (Auto) 0.7 H, Eos # (Auto) 0.0, Baso # (Auto) 0.01 - RAD Interpretation Radiology Orders: 05/27/18 16:23 ABD & PELVIS IV CONTRAST ONLY [CT] Stat - Medication Orders Current Medication Orders: Discontinued Medications Sodium Chloride (Sodium Chloride 0.9%) 1,000 mls @ 999 mls/hr IV .Q1H1M STA Stop: 04/13/18 17:23 Last Admin: 04/13/18 16:45 Dose: 999 mls/hr eMAR Start Stop Document 04/13/18 16:45 LA (Rec: 04/13/18 16:46 LA [id number]) Intravenous Solution Start Date 04/13/18 Start Time 16:45 End Date 04/13/18 End time 17:46 Total Infusion Time 61 Levofloxacin/Dextrose (Levaquin 750mg) 750 mg in 150 mls @ 100 mls/hr IVPB STAT STA PRN Reason: Protocol Stop: 04/13/18 19:25 Last Admin: 04/13/18 18:11 Dose: 100 mls/hr eMAR Start Stop Document 04/13/18 18:11 LA (Rec: 04/13/18 18:13 LA [id number]) Intravenous Solution Start Date 04/13/18 Start Time 18:12 End Date 04/13/18 End time 19:42 Total Infusion Time 90 Ketorolac Tromethamine (Toradol) 30 mg IVP STAT STA Stop: 04/13/18 16:24 Last Admin: 04/13/18 16:44 Dose: 30 mg KATHARINE Pain Assessment Document 04/13/18 16:44 LA (Rec: 04/13/18 16:45 LA [id number]) Pain Reassessment Is this a pain reassessment? No Sleep Is patient sleeping during reassessment? No Presence of Pain Presence of Pain Yes Pain Scale Used Pain Scale Used Numeric Location Left, Right or Bilateral Left Pain Location Body Site Abdomen Description Description Constant Intensity of Pain at present 10 IVP Administration Document 04/13/18 16:44 LA (Rec: 04/13/18 16:45 LA [id number]) Charges for Administration # of IVP Administrations 1 Re-Assess: KATHARINE Pain Assessment Document 04/13/18 17:44 LA (Rec: 04/13/18 18:13 LA [id number]) Pain Reassessment Is this a pain reassessment? Yes Sleep Is patient sleeping during reassessment? No Presence of Pain Presence of Pain Yes Pain Scale Used Pain Scale Used Numeric Location Left, Right or Bilateral Left Pain Location Body Site Abdomen Description Description Constant Intensity of Pain at present 5 Morphine Sulfate (Morphine) 2 mg IVP STAT STA Stop: 04/13/18 20:02 Last Admin: 04/13/18 20:07 Dose: 2 mg IVP Administration Document 04/13/18 20:07 LA (Rec: 04/13/18 20:07 LA [id number]) Charges for Administration # of IVP Administrations 1 Ondansetron HCl (Zofran Inj) 4 mg IVP STAT STA Stop: 04/13/18 16:24 Last Admin: 04/13/18 16:45 Dose: 4 mg IVP Administration Document 04/13/18 16:45 LA (Rec: 04/13/18 16:45 LA [id number]) Charges for Administration # of IVP Administrations 1 Disposition/Present on Arrival - Present on Arrival Any Indicators Present on Arrival: No History of DVT/PE: No History of Uncontrolled Diabetes: No Urinary Catheter: No History of Decub. Ulcer: No History Surgical Site Infection Following: None - Disposition Have Diagnosis and Disposition been Completed?: Yes Diagnosis: Pyelonephritis, Diverticulitis Disposition: HOSPITALIZED Disposition Time: 19:00 Patient Plan: Admission Patient Problems: Current Active Problems Problem Status Onset Pyelonephritis Acute Condition: FAIR Discharge Instructions (ExitCare): Kidney Infection Referrals: Lai Browning [Primary Care Provider] - Follow up with primary Forms: [employer] (Hungarian)
[2018-04-13 17:11] LABS: BASO # 0.01 K/mm3 (0.0-2.0); BASO % 0.1 % (0.0-3.0); EOS % 0.4 % (1.5-5.0); GRAN # 7.81 (1.4-6.5); GRAN % 81.1 % (50.0-68.0); HEMOGLOBIN 13.5 g/dL (12.0-16.0); LYMPH # 1.1 (1.2-3.4); LYMPH % 11.1 % (22.0-35.0); MEAN CELL VOLUME 87.8 fl (80.0-105.0); MEAN CORPUSCULAR HEMOGLOBIN 29.5 pg (25.0-35.0); MEAN CORPUSCULAR HGB CONC 33.6 g/dl (31.0-37.0); MEAN PLATELET VOLUME 10.2 fl (7.0-11.0); MONO # 0.7 (0.1-0.6); MONO % 7.3 % (1.0-6.0); RBC 4.58 10^6/uL (3.5-6.1); WHITE BLOOD COUNT 9.6 10^3/ul (4.5-11.0)
[2018-04-13 17:17] LABS: URINE BILIRUBIN NEGATIVE (NEGATIVE); URINE BLOOD SMALL (NEGATIVE); URINE GLUCOSE (UA) NEGATIVE (NEGATIVE); URINE LEUKOCYTE ESTERASE LARGE Leu/uL (NEGATIVE); URINE PROTEIN 30 mg/dL (<30 mg/dL); URINE UROBILINOGEN 0.2 E.U./dL (<1 E.U./dL)
[2018-04-13 17:22] LABS: URINE APPEARANCE CLEAR (CLEAR); URINE COLOR YELLOW (YELLOW)
[2018-04-13 17:29] LABS: URINE BACTERIA MANY (NEG); URINE WBC 25 - 30 /hpf (0-6)
[2018-04-13] MEDS ORDERED: levoFLOXacin 750 mg in D5W 750 MG/150 ML BAG IVPB STA (17:56)
[2018-04-13 18:30] LABS: ALB/GLOB RATIO 1.4 (1.1-1.8); ALBUMIN 3.8 g/dL (3.0-4.8); GFR AFRICAN-AMERICAN > 60; GFR NON-AFRICAN AMERICAN > 60; LIPASE 13 U/L (23-300)
[2018-04-13 18:34] LABS: ALT/SGPT 24 U/L (7-56); AST/SGOT 19 U/L (14-36); BLOOD UREA NITROGEN 6 mg/dL (7-21)
[2018-04-13] MEDS ORDERED: Iohexol 350 MG/100 ML VIAL ONE (18:45)
[2018-04-13] MEDS ORDERED: Morphine 2 mg/2 mL syringe IVP STA (20:01)
--- NOTE | 2018-04-13 20:09 | CT ---
EXAM: CT Abdomen and Pelvis With Intravenous Contrast EXAM DATE/TIME: 04/13/2018 4:23 PM CLINICAL HISTORY: The patient age is 22 years old and is female; Pain; Abdominal pain; Flank; Left; Additional info: Left sided abd pain, left flank pain Facility exam id and description: Ct abdpelciv abd pelvis iv contrast only TECHNIQUE: Axial computed tomography images of the abdomen and pelvis with intravenous contrast. All CT scans at this facility use one or more dose reduction techniques, viz.: automated exposure control; ma/kV adjustment per patient size (including targeted exams where dose is matched to indication; i.e. head); or iterative reconstruction technique. Coronal and sagittal reformatted images were created and reviewed. CONTRAST: 100 mL of omnipaque 350 administered intravenously. COMPARISON: CT - ABD PELVIS IV CONTRAST ONLY 2017-07-17 11:11 FINDINGS: Lung bases: No mass. No consolidation. ABDOMEN: Liver: No mass. Gallbladder and bile ducts: No calcified stones. No ductal dilation. Pancreas: Normal contour, without acute peripancreatic stranding. Spleen: Multiple small hypodense cysts or lesions are identified at the periphery of the spleen superiorly. One of the larger lesions measures 1.0 x 0.7 cm. Similar findings are visualized on the prior study. A splenule is visualized. Adrenals: No mass. Kidneys and ureters: There is new left perinephric stranding. There is stranding of the fat surrounding the proximal left ureter and left renal pelvis with mild wall thickening of the left renal pelvis. These findings are likely infectious or inflammatory, although additional pathology cannot be excluded. Stomach and bowel: There is stranding of the fat posterior to the uterus and adjacent to the rectosigmoid junction. A small diverticulum is visualized in this region, suggestive of diverticulitis. This is visualized on series 3 image 148. PELVIS: Appendix: The appendix is not visualized. Bladder: No mass. Reproductive: Hypodense follicles are visualized within the bilateral ovaries. There is a small hypodense lesion at the level of the cervix, suggestive of a nabothian cyst. This is stable. ABDOMEN and PELVIS: Intraperitoneal space: No free air. Bones/joints: There is developmental narrowing of the spinal canal within the lower lumbar spine. Vasculature: No abdominal aortic aneurysm. Lymph nodes: No enlarged lymph nodes. IMPRESSION: 1. There is new left perinephric stranding. There is stranding of the fat surrounding the proximal left ureter and left renal pelvis with mild wall thickening of the left renal pelvis. These findings are likely infectious or inflammatory, although additional pathology cannot be excluded. Clinical correlation is recommended. 2. Multiple small hypodense cysts or lesions are identified at the periphery of the spleen superiorly. Similar findings are visualized on the prior study. 3. There is stranding of the fat posterior to the uterus and adjacent to the rectosigmoid junction. A small diverticulum is visualized in this region, suggestive of diverticulitis. 4. Additional CT findings described above.
[2018-04-13] MEDS ORDERED: metroNIDAZOLE IV 500 mg/100 ml 500 MG/100 ML BAG IVPB STA (20:19)
[2018-04-13] MEDS ORDERED: Morphine 2 mg/2 mL syringe IVP PRN ×2 (20:23→20:26)
[2018-04-13] MEDS ORDERED: Vitamins A & D Oint UD Foilpak TOP PRN (20:23)
[2018-04-13] MEDS ORDERED: Albuterol 0.083% Inhal Sol (2.5 mg/3 mL) UD IH PRN (20:29)
[2018-04-13] MEDS ORDERED: Albuterol HFA 90 mcg/actuation (8 g) IH PRN (20:29)
[2018-04-13] MEDS: Sodium Chloride 0.9% 1,000 ML IV SCH (20:45)
[2018-04-13 21:26] VITALS: BMI 29.2
[2018-04-13] MEDS: metroNIDAZOLE IV 500 mg/100 ml 500 MG/100 ML BAG IVPB SCH (22:28)
--- NOTE | 2018-04-13 23:24 | CP.PCM.HP ---
<Andrew Bwoen - Last Filed: 04/13/18 23:49> History of Present Illness - History of Present Illness History of Present Illness: Ms. Mckinney is a 22 year old female with a past medical history of asthma, endometriosis and recurrent UTI's who presents with two days of left flank pain and LLQ/hypogastric abdominal pain. Patient reports that one week ago she was seen at [facility] [place] for dysuria with hematuria and was discharged on a seven day course of Macrobid. Patient reports completing the full course of this antibiotic but that two days ago, while still on Macrobid, she began to develop left flank pain and LLQ/hypogastric pain, which was described as 6/10 non- radiating crampy pain. She thought that this may go away with completion of her antibiotic and when it did not she decided to be seen for further evaluation. She endorses intermittent nausea but denies any fevers, chills, headache, changes in her vision, chest pain, palpitations, SOB, cough, wheezing, sputum production, vomiting, diarrhea, constipation, further dysuria, further hematuria , pyuria, skin lesions, vaginal discharge, or any numbness/tingling/weakness of any extremity. PMH: As stated above PSH: Elective (07/03) Family History: Non-contributory Social History: Denies tobacco, alcohol, or illicit drug abuse; Sexually active with one partner without any reported STI history; Lives in [place] Allergies: Keflex and Prochlorperazine Home Medications: As per MAR and OCP Present on Admission - Present on Admission Any Indicators Present on Admission: No Review of Systems - Review of Systems Review of Systems: As stated in HPI, otherwise negative Past Patient History - Infectious Disease Hx of Infectious Diseases: None - Tetanus Immunizations Tetanus Immunization: Up to Date - Past Social History Smoking Status: Never Smoked - CARDIAC Hx Cardiac Disorders: No - PULMONARY Hx Respiratory Disorders: Yes Hx Asthma: Yes - NEUROLOGICAL Hx Neurological Disorder: No - HEENT Hx HEENT Problems: No - RENAL Hx Chronic Kidney Disease: No - ENDOCRINE/METABOLIC Hx Endocrine Disorders: No - HEMATOLOGICAL/ONCOLOGICAL Hx Blood Disorders: No - INTEGUMENTARY Hx Dermatological Problems: No - MUSCULOSKELETAL/RHEUMATOLOGICAL Hx Musculoskeletal Disorders: No - GASTROINTESTINAL Hx Gastrointestinal Disorders: No - GENITOURINARY/GYNECOLOGICAL Hx Genitourinary Disorders: No - PSYCHIATRIC Hx Psychophysiologic Disorder: No Hx Anxiety: No Hx Bipolar Disorder: No Hx Depression: No Hx Emotional Abuse: No Hx Hallucinations: No Hx Panic Symptoms: No Hx Post Traumatic Stress Disorder: No Hx Psychosis: No Hx Physical Abuse: No Hx Schizophrenia: No Hx Sexual Abuse: No Hx Substance Use: No - SURGICAL HISTORY Hx Surgeries: No - ANESTHESIA Hx Anesthesia: Yes Hx Anesthesia Reactions: No Hx Malignant Hyperthermia: No Meds Allergies/Adverse Reactions: Allergies Allergy/AdvReac Type Severity Reaction Status Date / Time cephalexin [From Keflex] Allergy RASH Verified 04/13/18 15:46 prochlorperazine Allergy RASH Verified 04/13/18 15:46 [From Compazine] prochlorperazine edisylate Allergy RASH Verified 04/13/18 15:46 [From Compazine] prochlorperazine maleate Allergy RASH Verified 04/13/18 15:46 [From Compazine] Physical Exam - Constitutional Appears: Non-toxic, No Acute Distress - Head Exam Head Exam: ATRAUMATIC, NORMOCEPHALIC - Eye Exam Eye Exam: EOMI, Normal appearance, PERRL - ENT Exam ENT Exam: Mucous Membranes Moist, Normal Exam - Neck Exam Neck exam: Positive for: Full Rom, Normal Inspection. Negative for: Lymphadenopathy, Meningismus, Tenderness, Thyromegaly - Respiratory Exam Respiratory Exam: Clear to Auscultation Bilateral, NORMAL BREATHING PATTERN. absent: Accessory Muscle Use, Chest Wall Tenderness, Decreased Breath Sounds, Prolonged Expiratory Phase, Rales, Rhonchi, Wheezes, Respiratory Distress, Stridor - Cardiovascular Exam Cardiovascular Exam: REGULAR RHYTHM, RRR, +S1, +S2. absent: Bradycardia, Tachycardia, Clicks, Diastolic murmur, Gallop, Irregular Rhythm, JVD, Rubs, +S4 , Systolic Murmur - GI/Abdominal Exam GI & Abdominal Exam: Normal Bowel Sounds, Soft, Tenderness (TTP to LLQ and Hypogastric region). absent: Bruit, Diminished Bowel Sounds, Distended, Firm, Guarding, Hernia, Hyperactive Bowel Sounds, Hypoactive Bowel Sounds, Mass, Organomegaly, Pulsatile Mass, Rebound, Rigid - Extremities Exam Extremities exam: Positive for: full ROM, normal capillary refill, normal inspection, pedal pulses present. Negative for: calf tenderness, joint swelling , pedal edema, tenderness - Back Exam Back exam: CVA tenderness (L), FULL ROM. absent: CVA tenderness (R), muscle spasm, paraspinal tenderness, rash noted - Neurological Exam Neurological exam: Alert, Normal Gait, Oriented x3 - Psychiatric Exam Psychiatric exam: Normal Affect, Normal Mood - Skin Skin Exam: Dry, Intact, Normal Color, Warm Results - Vital Signs Recent Vital Signs: Last Vital Signs Temp 98.3 F 04/13/18 22:07 Pulse 77 04/13/18 22:07 Resp 18 04/13/18 22:07 BP 119/75 04/13/18 22:07 Pulse Ox 100 04/13/18 22:07 - Labs Result Diagrams: 04/13/18 16:30 04/13/18 17:00 Assessment & Plan - Assessment and Plan (Free Text) Assessment: 22 year old female with a past medical history of asthma, endometriosis and recurrent UTI's who presents with two days of left flank pain and LLQ/ hypogastric abdominal pain. Patient reports that one week ago she was seen at [facility] [place] for dysuria with hematuria and was discharged on a seven day course of Macrobid. Patient was found to have findings suggestive of left sided pyelonephritis and rectosigmoid diverticulitis. Patient will be admitted for left sided pyelonephritis/complicated UTI with failed OP treatment and rectosigmoid diverticulitis. Plan: 1. Left Sided Pyelonephritis/Complicated UTI with Failed OP Treatment -CT Abdomen/Pelvis reviewed and showed left perinephric fat stranding -UA showed signs of UTI despite seven days of Macrobid therapy -Procal, blood and urine cultures pending -IV Azactam 1gm Q8 for emperic coverage -IV Morphine 1mg Q6 and 2mg Q4 for moderate and severe pain control, respectively -Normal Saline at 100mls/hr -Urology and ID consulted, all recommendations appreciated 2. Rectosigmoid Diverticulitis -CT Abdomen/Pelvis showed findings suggestive of rectosigmoid diverticulitis -IV Flagyl 500mg Q8 -NPO Diet -Pain control and IV hydration as stated above -Zofran PRN for N/V 3. History of Endometriosis -Continue home OCP -Patients mother to bring in patients OCP in AM 4. History of Asthma -Continue home Albuterol treatments PRN GI Prophylaxis: Protonix DVT Prophylaxis: Heparin Patient seen and case discussed with attending, Dr. Lester Cheney. - Date & Time Date: 04/13/18 Time: 23:24 Decision To Admit - Pt Status Changed To: Hospital Disposition Of: Inpatient Admission - Admit Certification Admit to Inpatient:: After my assessment, the patient will require hospitalization for at least two midnights. This is because of the severity of symptoms shown, intensity of services needed, and/or the medical risk in this patient being treated as an outpatient. - . Bed Request Type: Med/Surg <Lester Cheney N - Last Filed: 04/17/18 03:53> Results - Vital Signs Recent Vital Signs: Last Vital Signs Temp 98.8 F 04/16/18 22:57 Pulse 62 04/16/18 22:57 Resp 18 04/16/18 22:57 BP 123/83 04/16/18 22:57 Pulse Ox 100 04/16/18 22:57 - Labs Result Diagrams: 04/16/18 06:35 04/16/18 06:35 Labs: Laboratory Results - last 24 hr 04/16/18 04/16/18 06:35 06:35 WBC 5.9 RBC 3.76 Hgb 10.9 L Hct 32.9 L MCV 87.5 MCH 29.0 MCHC 33.1 RDW 12.8 Plt Count 185 MPV 9.7 Gran % 50.2 Lymph % (Auto) 28.0 [place] % (Auto) 20.6 H Eos % (Auto) 1.0 L Baso % (Auto) 0.2 Gran # 2.97 Lymph # (Auto) 1.7 [place] # (Auto) 1.2 H Eos # (Auto) 0.1 Baso # (Auto) 0.01 Neutrophils % (Manual) 61 Lymphocytes % (Manual) 27 Monocytes % (Manual) 9 H Eosinophils % (Manual) 2 Basophils % (Manual) 1 Platelet Evaluation Normal Sodium 143 Potassium 3.6 Chloride 109 H Carbon Dioxide 22 Anion Gap 15 BUN 6 L Creatinine 0.6 L Est GFR ( Amer) > 60 Est GFR (Non-Af Amer) > 60 Random Glucose 87 Calcium 8.3 L Total Bilirubin 0.5 AST 15 ALT 25 Alkaline Phosphatase 59 Total Protein 6.3 Albumin 3.3 Globulin 3.0 Albumin/Globulin Ratio 1.1
[2018-04-14] MEDS ORDERED: Aztreonam 1 Gm in NS 100mL 100 ML IVPB SCH (06:00)
[2018-04-14] MEDS: metroNIDAZOLE IV 500 mg/100 ml 500 MG/100 ML BAG IVPB SCH ×3 (06:10→21:06)
[2018-04-14 07:07] LABS: BASO # 0.01 K/mm3 (0.0-2.0); BASO % 0.1 % (0.0-3.0); GRAN # 8.27 (1.4-6.5); HEMOGLOBIN 12.1 g/dL (12.0-16.0); LYMPH % 9.4 % (22.0-35.0); MEAN CELL VOLUME 88.5 fl (80.0-105.0); MEAN CORPUSCULAR HEMOGLOBIN 29.1 pg (25.0-35.0); MEAN CORPUSCULAR HGB CONC 32.9 g/dl (31.0-37.0); MEAN PLATELET VOLUME 10.2 fl (7.0-11.0); MONO # 1.1 (0.1-0.6); MONO % 10.5 % (1.0-6.0); RBC 4.16 10^6/uL (3.5-6.1); RED CELL DISTRIBUTION WIDTH 12.9 % (11.5-14.5); WHITE BLOOD COUNT 10.3 10^3/ul (4.5-11.0)
[2018-04-14 07:40] LABS: ALB/GLOB RATIO 1.4 (1.1-1.8); ALT/SGPT 19 U/L (7-56); AST/SGOT 21 U/L (14-36); BLOOD UREA NITROGEN 6 mg/dL (7-21); CALCIUM 8.5 mg/dL (8.4-10.5); GFR AFRICAN-AMERICAN > 60; GFR NON-AFRICAN AMERICAN > 60
--- NOTE | 2018-04-14 08:16 | CP.PCM.CON ---
History of Present Illness - History of Present Illness History of Present Illness: Asked by hospitalist team for a GI consultation on this patient. 22 year old female with history of asthma, endometriosis who presents to hospital with complaint of progressive left sided flank and suprapubic abdominal pain for the past one week. She recently was diagnosed with UTI and given outpatient antibiotic therapy, though symptoms have still persisted. GI called for evaluation of diverticulitis seen on CT imaging. She endorses sharp L flank pain and suprapubic tenderness associated with nausea. She denies weight loss, diarrhea (normal bowel movement yesterday), rectal bleeding. No prior endoscopic evaluation. Social history: non-smoker, no ETOH use Family history: reviewed, patient denies history of GI malignancies Review of Systems - Review of Systems Review of Systems: - All other comprehensive 12 point review of systems performed, negative - Constitutional Constitutional: Fatigue - Cardiovascular Cardiovascular: absent: Acrocyanosis, Chest Pain, Chest Pain at Rest, Chest Pain with Activity, Claudication, Diaphoresis, Dyspnea, Dyspnea on Exertion, Edema, Irregular Heart Rhythm, Pain Radiating to Arm/Neck/Jaw, Leg Edema, Leg Ulcers, Lightheadedness, Orthopnea, Palpitations, Paroxysmal Nocturnal Dyspnea, Pedal Edema, Radiating Pain, Rapid Heart Rate, Slow Heart Rate, Syncope, Other - Respiratory Respiratory: absent: Cough, Dyspnea, Hemoptysis, Dyspnea on Exertion, Wheezing, Snoring, Stridor, Pain on Inspiration, Chest Congestion, Excessive Mucous Production, Change in Mucous Color, Pain with Coughing, Other - Gastrointestinal Gastrointestinal: absent: Abdominal Pain, Belching, Bloating, Change in Bowel Habits, Change in Stool Character, Coffee Ground Emesis, Constipation, Cramping , Diarrhea, Dyspepsia, Dysphagia, Early Satiety, Excessive Flatus, Fecal Incontinence, Heartburn, Hematemesis, Hematochezia, Loose Stools, Melena, Nausea , Odynophagia, Temesmus, Vomiting, Other - Genitourinary Genitourinary: Flank Pain - Musculoskeletal Musculoskeletal: absent: Abnormal Gait, Arthralgias, Atrophy, Back Pain, Deformity, Joint Swelling, Limited Range of Motion, Loss of Height, Muscle Cramps, Muscle Weakness, Myalgias, Neck Pain, Numbness, Radiating Pain into Limb , Stiffness, Tingling, Other - Neurological Neurological: absent: Abnormal Gait, Abnormal Hearing, Abnormal Movements, Abnormal Speech, Behavioral Changes, Burning Sensations, Confusion, Convulsions , Disequilibrium, Dizziness, Numbness, Focal Weakness, Frequent Falls, Headaches , Lack of Coordination, Loss of Vision, Memory Loss, Paresthesias, Radicular Pain, Restless Legs, Sensory Deficit, Syncope, Tingling, Tremor, Vertigo, Weakness, Other Visual Disturbances, Other Past Patient History - Infectious Disease Hx of Infectious Diseases: None - Tetanus Immunizations Tetanus Immunization: Up to Date - Past Social History Smoking Status: Never Smoked - CARDIAC Hx Cardiac Disorders: No - PULMONARY Hx Respiratory Disorders: Yes Hx Asthma: Yes - NEUROLOGICAL Hx Neurological Disorder: No - HEENT Hx HEENT Problems: No - RENAL Hx Chronic Kidney Disease: No - ENDOCRINE/METABOLIC Hx Endocrine Disorders: No - HEMATOLOGICAL/ONCOLOGICAL Hx Blood Disorders: No - INTEGUMENTARY Hx Dermatological Problems: No - MUSCULOSKELETAL/RHEUMATOLOGICAL Hx Musculoskeletal Disorders: No - GASTROINTESTINAL Hx Gastrointestinal Disorders: No - GENITOURINARY/GYNECOLOGICAL Hx Genitourinary Disorders: No - PSYCHIATRIC Hx Psychophysiologic Disorder: No Hx Anxiety: No Hx Bipolar Disorder: No Hx Depression: No Hx Emotional Abuse: No Hx Hallucinations: No Hx Panic Symptoms: No Hx Post Traumatic Stress Disorder: No Hx Psychosis: No Hx Physical Abuse: No Hx Schizophrenia: No Hx Sexual Abuse: No Hx Substance Use: No - SURGICAL HISTORY Hx Surgeries: No - ANESTHESIA Hx Anesthesia: Yes Hx Anesthesia Reactions: No Hx Malignant Hyperthermia: No Meds Allergies/Adverse Reactions: Allergies Allergy/AdvReac Type Severity Reaction Status Date / Time cephalexin [From Keflex] Allergy RASH Verified 04/13/18 15:46 prochlorperazine Allergy RASH Verified 04/13/18 15:46 [From Compazine] prochlorperazine edisylate Allergy RASH Verified 04/13/18 15:46 [From Compazine] prochlorperazine maleate Allergy RASH Verified 04/13/18 15:46 [From Compazine] - Medications Medications: Current Medications Albuterol Sulfate (Albuterol 0.083% Inhal Josey (2.5 Mg/3 Ml) Ud) 2.5 mg IH TID PRN PRN Reason: Cough Heparin Sodium (Porcine) (Heparin) 5,000 units SC Q12 RUPERT PRN Reason: Protocol Last Admin: 04/13/18 22:28 Dose: 5,000 units Metronidazole (Flagyl) 500 mg in 100 mls @ 100 mls/hr IVPB Q8 RUPERT PRN Reason: Protocol Last Admin: 04/14/18 06:10 Dose: 100 mls/hr Sodium Chloride (Sodium Chloride 0.9%) 1,000 mls @ 100 mls/hr IV .Q10H [facility] Last Admin: 04/13/18 20:45 Dose: 100 mls/hr Aztreonam (Azactam 1 Gm) 100 mls @ 100 mls/hr IVPB Q8 RUPERT PRN Reason: Protocol Stop: 04/14/18 14:59 Last Admin: 04/14/18 05:09 Dose: 100 mls/hr Morphine Sulfate (Morphine) 2 mg IVP Q4H PRN PRN Reason: Pain, severe (8-10) Ondansetron HCl (Zofran Inj) 4 mg IVP Q4H PRN PRN Reason: Nausea/Vomiting Pantoprazole Sodium (Protonix Inj) 40 mg IVP DAILY [facility] Vitamin A (Vitamin A & D Oint Ud Foilpak) 1 ea TOP Q2 PRN PRN Reason: Dry mouth Physical Exam - Constitutional Appears: Non-toxic, No Acute Distress - Head Exam Head Exam: NORMAL INSPECTION - Eye Exam Eye Exam: EOMI, Normal appearance - ENT Exam ENT Exam: Mucous Membranes Moist - Respiratory Exam Respiratory Exam: Clear to Auscultation Bilateral - Cardiovascular Exam Cardiovascular Exam: REGULAR RHYTHM, +S1, +S2 - GI/Abdominal Exam GI & Abdominal Exam: Normal Bowel Sounds, Soft Additional comments: L flank / CVA tenderness to palpation no palpable hepato/splenomegaly - Extremities Exam Extremities exam: Positive for: normal inspection - Neurological Exam Neurological exam: Alert, CN II-XII Intact, Oriented x3, Reflexes Normal - Skin Skin Exam: Dry, Intact, Normal Color, Warm Results - Vital Signs Recent Vital Signs: Last Vital Signs Temp 98.6 F 04/13/18 22:10 Pulse 71 04/13/18 22:10 Resp 20 04/13/18 22:10 BP 141/90 04/13/18 22:10 Pulse Ox 100 04/13/18 22:10 - Labs Result Diagrams: 04/14/18 06:00 04/14/18 06:00 Labs: Laboratory Results - last 24 hr 04/14/18 04/14/18 06:00 06:00 WBC 10.3 RBC 4.16 Hgb 12.1 Hct 36.8 MCV 88.5 MCH 29.1 MCHC 32.9 RDW 12.9 Plt Count 204 MPV 10.2 Gran % 80.0 H Lymph % (Auto) 9.4 L [place] % (Auto) 10.5 H Eos % (Auto) 0.0 L Baso % (Auto) 0.1 Gran # 8.27 H Lymph # (Auto) 1.0 L [place] # (Auto) 1.1 H Eos # (Auto) 0.0 Baso # (Auto) 0.01 Sodium 143 Potassium 3.6 Chloride 105 Carbon Dioxide 24 Anion Gap 18 BUN 6 L Creatinine 0.7 Est GFR ( Amer) > 60 Est GFR (Non-Af Amer) > 60 Random Glucose 92 Calcium 8.5 Total Bilirubin 1.9 H AST 21 ALT 19 Alkaline Phosphatase 71 Total Protein 7.0 Albumin 4.0 Globulin 3.0 Albumin/Globulin Ratio 1.4 Assessment & Plan - Assessment and Plan (Free Text) Assessment: Flank/suprapubic tenderness - acute pyelonephritis CT imaging reviewed by me showing L perinephric stranding, splenic cystic lesions, isolated rectosigmoid diverticulum Plan: - Advance diet as tolerated - Continue with antibiotic therapy, follow up urine cultures - Clinical presentation not suggestive of acute diverticulitis, more likely reactive changes from associated pyelonephritis - There are no active GI issues at this time, will sign off case. Please reconsult as necessary, thank you.
[2018-04-14] MEDS ORDERED: Morphine 4 mg/ml ISec IVP PRN (08:57)
--- NOTE | 2018-04-14 09:03 | CP.PCM.PN ---
<Adri Carrion - Last Filed: 04/14/18 10:34> Subjective - Date & Time of Evaluation Date of Evaluation: 04/14/18 Time of Evaluation: 09:00 - Subjective Subjective: Progress note for hospitalist service. No overnight acute events. Patient states the abdominal pain has improved. No vomiting, admits to nausea, no diarrhea. Admits to dysurea. No fever or chills. No cp or sob. Objective - Vital Signs/Intake and Output Vital Signs (last 24 hours): Temp Pulse Resp BP Pulse Ox 98.8 F 94 H 20 107/60 97 04/14/18 08:10 04/14/18 08:10 04/14/18 08:10 04/14/18 08:10 04/14/18 08:10 Intake and Output: 04/14/18 04/14/18 06:59 18:59 Intake Total 800 Balance 800 - Medications Medications: Current Medications Acetaminophen (Tylenol 325mg Tab) 650 mg PO Q6H PRN PRN Reason: FEVER AND PAIN, MILD ( 1-3) Albuterol Sulfate (Albuterol 0.083% Inhal Josey (2.5 Mg/3 Ml) Ud) 2.5 mg IH TID PRN PRN Reason: Cough Doxycycline Hyclate (Doryx) 100 mg PO Q12 RUPERT PRN Reason: Protocol Stop: 04/23/18 10:01 Heparin Sodium (Porcine) (Heparin) 5,000 units SC Q12 RUPERT PRN Reason: Protocol Last Admin: 04/13/18 22:28 Dose: 5,000 units Metronidazole (Flagyl) 500 mg in 100 mls @ 100 mls/hr IVPB Q8 RUPERT PRN Reason: Protocol Last Admin: 04/14/18 06:10 Dose: 100 mls/hr Sodium Chloride (Sodium Chloride 0.9%) 1,000 mls @ 100 mls/hr IV .Q10H [facility] Last Admin: 04/13/18 20:45 Dose: 100 mls/hr Aztreonam (Azactam 1 Gm) 100 mls @ 100 mls/hr IVPB Q8 RUPERT PRN Reason: Protocol Stop: 04/24/18 14:01 Morphine Sulfate (Morphine) 2 mg IVP Q4H PRN PRN Reason: Pain, severe (8-10) Ondansetron HCl (Zofran Inj) 4 mg IVP Q4H PRN PRN Reason: Nausea/Vomiting Pantoprazole Sodium (Protonix Inj) 40 mg IVP DAILY [facility] Vitamin A (Vitamin A & D Oint Ud Foilpak) 1 ea TOP Q2 PRN PRN Reason: Dry mouth - Labs Labs: 04/14/18 06:00 04/14/18 06:00 - Constitutional Appears: No Acute Distress - Head Exam Head Exam: ATRAUMATIC, NORMAL INSPECTION, NORMOCEPHALIC - Eye Exam Eye Exam: Normal appearance Pupil Exam: NORMAL ACCOMODATION - ENT Exam ENT Exam: Mucous Membranes Moist - Neck Exam Neck Exam: Normal Inspection - Respiratory Exam Respiratory Exam: Clear to Ausculation Bilateral, NORMAL BREATHING PATTERN. absent: Prolonged Expiratory Phase, Rales, Rhonchi, Wheezes, Respiratory Distress, Stridor - Cardiovascular Exam Cardiovascular Exam: REGULAR RHYTHM, RRR, +S1, +S2. absent: Bradycardia, Tachycardia, Gallop, JVD, Rubs, Murmur - GI/Abdominal Exam GI & Abdominal Exam: Soft, Tenderness (suprapelvis), Normal Bowel Sounds. absent: Distended, Firm, Guarding, Rigid, Diminished Bowel Sounds, Hypoactive Bowel Sounds, Rebound - Extremities Exam Extremities Exam: Full ROM, Normal Capillary Refill, Normal Inspection - Back Exam Back Exam: NORMAL INSPECTION - Neurological Exam Neurological Exam: Alert, Awake, Oriented x3 - Psychiatric Exam Psychiatric exam: Normal Affect, Normal Mood - Skin Skin Exam: Dry, Intact, Normal Color, Warm Assessment and Plan - Assessment and Plan (Free Text) Assessment: Patient is a 22 y/o F with PMHx asthma, endometriosis and recurrent UTI's who presents with two days of left flank pain and left lower quadrant abdominal pain found to have pyelonephritis. Plan: 1) Pyelonephritis - urine and blood cultures pending - STI's sent as per ID - Stared on Aztreonam and doxy per ID - Tylenol prn for fever and pain - Continue with IV hydration - Zofran prn for nausea/vomiting 2) CT with small rectosigmoid diverticulitis - Per Gi this is likely reactive from pyelonephritis - No Gi intervention - Patient started on liquid diet, to be advanced as tolerated 3) H/o Endometriosis - Ibuprofen prn for pain 4. H/o asthma- no active disease at this moment - on Albuterol treatments PRN 5) DVT/GI prophylaxis: VTE device and pepcid. Patient seen, examined and case discussed with Dr Mccullough. <Osman Mccullough - Last Filed: 04/14/18 14:00> Objective - Vital Signs/Intake and Output Vital Signs (last 24 hours): Temp Pulse Resp BP Pulse Ox 98.8 F 94 H 20 107/60 97 04/14/18 08:10 04/14/18 08:10 04/14/18 08:10 04/14/18 08:10 04/14/18 08:10 Intake and Output: 04/14/18 04/14/18 06:59 18:59 Intake Total 800 Balance 800 - Medications Medications: Current Medications Acetaminophen (Tylenol 325mg Tab) 650 mg PO Q6H PRN PRN Reason: FEVER AND PAIN, MILD ( 1-3) Last Admin: 04/14/18 10:00 Dose: 650 mg Albuterol Sulfate (Albuterol 0.083% Inhal Josey (2.5 Mg/3 Ml) Ud) 2.5 mg IH TID PRN PRN Reason: Cough Doxycycline Hyclate (Doryx) 100 mg PO Q12 RUPERT PRN Reason: Protocol Stop: 04/23/18 10:01 Last Admin: 04/14/18 10:01 Dose: 100 mg Famotidine (Pepcid) 40 mg PO HS RUPERT Sodium Chloride (Sodium Chloride 0.9%) 1,000 mls @ 100 mls/hr IV .Q10H [facility]UP[facility] Last Admin: 04/13/18 20:45 Dose: 100 mls/hr Aztreonam (Azactam 1 Gm) 100 mls @ 100 mls/hr IVPB Q8 RUPERT PRN Reason: Protocol Stop: 04/24/18 14:01 Last Admin: 04/14/18 13:26 Dose: 100 mls/hr Metronidazole (Flagyl) 500 mg in 100 mls @ 100 mls/hr IVPB Q8 RUPERT PRN Reason: Protocol Ibuprofen (Motrin Tab) 400 mg PO Q6H PRN PRN Reason: Pain, moderate (4-7) Ondansetron HCl (Zofran Inj) 4 mg IVP Q4H PRN PRN Reason: Nausea/Vomiting Vitamin A (Vitamin A & D Oint Ud Foilpak) 1 ea TOP Q2 PRN PRN Reason: Dry mouth - Labs Labs: 04/14/18 06:00 04/14/18 06:00 Attending/Attestation - Attestation I have personally seen and examined this patient.: Yes I have fully participated in the care of the patient.: Yes I have reviewed all pertinent clinical information, including history, physical exam and plan: Yes Notes (Text): 04/14/18 13:57 Attending note; Patient seen and examined with resident. Patient is a 22-year-old female with a history of asthma, endometriosis, UTI is admitted with left flank pain. CT consistent with left pyelonephritis. CAT scan also showed possible diverticulitis. GI evaluation appreciated. Diverticulitis less likely. Started on clear liquid diet. Currently patient is on IV Azactam, Flagyl and doxycycline. ID evaluation appreciated. Patient denies any vaginal discharge; chlamydia and gonorrhea workup ordered. Follow-up culture results. Patient is clinically stable. Upon discharge the patient will follow-up with PMD Dr. Browning.
[2018-04-14] MEDS ORDERED: levoFLOXacin 750 mg in D5W 750 MG/150 ML BAG IVPB SCH (10:00)
[2018-04-14] MEDS: Aztreonam 1 Gm in NS 100mL 100 ML IVPB SCH ×2 (13:26→22:11)
--- NOTE | 2018-04-14 13:49 | CON ---
DATE: 04/14/2018 LOCATION: The patient is in room 565, bed 1. CHIEF COMPLAINT: Abdominal and pelvic pain and back pain times several days. HISTORY OF PRESENT ILLNESS: A 22-year-old female, who is seen in the emergency room yesterday complaining of nausea, vomiting, left-sided abdominal pain, left-sided back pain, was diagnosed with urinary tract infection a week ago, was placed on antibiotics and symptoms have not resolved. She is having dysuria and frequency and left-sided flank pain and left-sided abdominal pain. She has no chest pain, shortness of breath or cough. No headaches or blurred vision. She is having dysuria and frequency. PAST MEDICAL HISTORY: Significant for asthma. PAST SURGICAL HISTORY: Noncontributory. She did have a D&C, she states. ALLERGIES: SHE IS ALLERGIC TO CEPHALEXIN. SHE STATES THAT SHE HAS DIFFICULTY BREATHING AND SHE FELT THAT HER THROAT WAS GOING TO CLOSE. MEDICATIONS AT HOME: Inhaler. Review of her records reveals the patient has had multiple hospital visits, 3 in 2018 ER visits, 3 in 2016 ER visits, 2 in 2015 ER visits, 2 in 2014 ER visits, 3 ER visits in 2013, 3 ER visits in 2012 ranging from syncope to overdose. She had ER visits in 2011 and 2010 both for syncopal. Significant number of ER visits for a 22-year-old. PHYSICAL EXAMINATION: VITAL SIGNS: She is in bed with a temperature of 99.2, heart rate of 94, respiratory rate of 18, blood pressure is 130/70. HEENT: Examination of HEENT is unremarkable. NECK: Supple. LUNGS: Have decreased breath sounds. HEART: Normal S1, S2. ABDOMEN: Soft. Nontender. No organomegaly. No rebound. No guarding. There is a left-sided CVA tenderness. LABORATORY DATA: Laboratory examination reveals a white count of 9.6, hemoglobin of 13, platelets of 198. Chemistries reveals a BUN of 6, creatinine of 0.6. Urinalysis reveals 25-30 wbc's, many bacteria. There is also presence of yeast. The patient had GC and Chlamydia workup in 2017 which was negative. Microbiology reveals the urine cultures had multiple species from 03/12/2017. No urine culture was sent in the 2018 ER visits. She did have a urine culture from 2015, which showed no growth. Urine culture was sent yesterday. Blood culture was sent yesterday. Procalcitonin was sent. The patient also had a CAT scan of the abdomen and pelvis, which was with IV contrast only and new left perinephric stranding. Dr. Reyes's consultation is also reviewed. He states that the patient has asthma and endometriosis. He states that the CAT scan had seen diverticulitis and that is the reason for the consultation. An isolated rectosigmoid diverticulum was seen. ASSESSMENT AND PLAN: A 22-year-old female, who is sexually active, has one boyfriend and from another college, is currently in school and history of asthma and endometriosis, admitted with left flank pain and CAT scan shows #1 is left pyelonephritis in a patient who is describing a type 1 cephalexin allergy. We will treat the patient with aztreonam and the patient is currently on aztreonam and also with Flagyl. We will add doxycycline and order human immunodeficiency virus test and we will order a Chlamydia and gonorrhea workup and an RPR and FTA in addition to Azactam, Flagyl and doxycycline, pelvic inflammatory disease workup and sexually transmitted disease workup. Pending urine cultures and blood cultures. We will make further recommendations pending workup and clinical response. Facundo Sargent MD
[2018-04-15] MEDS: Sodium Chloride 0.9% 1,000 ML IV SCH (04:17)
[2018-04-15] MEDS: Aztreonam 1 Gm in NS 100mL 100 ML IVPB SCH ×3 (05:39→22:02)
[2018-04-15] MEDS: metroNIDAZOLE IV 500 mg/100 ml 500 MG/100 ML BAG IVPB SCH ×3 (05:40→21:15)
[2018-04-15 06:52] LABS: BASO # 0.01 K/mm3 (0.0-2.0); BASO % 0.1 % (0.0-3.0); EOS % 0.4 % (1.5-5.0); GRAN # 4.39 (1.4-6.5); GRAN % 61.8 % (50.0-68.0); HEMOGLOBIN 11.2 g/dL (12.0-16.0); LYMPH # 1.6 (1.2-3.4); LYMPH % 23.1 % (22.0-35.0); MEAN CELL VOLUME 88.1 fl (80.0-105.0); MEAN CORPUSCULAR HEMOGLOBIN 28.9 pg (25.0-35.0); MEAN CORPUSCULAR HGB CONC 32.7 g/dl (31.0-37.0); MEAN PLATELET VOLUME 9.6 fl (7.0-11.0); MONO % 14.6 % (1.0-6.0); RBC 3.88 10^6/uL (3.5-6.1); RED CELL DISTRIBUTION WIDTH 12.9 % (11.5-14.5); WHITE BLOOD COUNT 7.1 10^3/ul (4.5-11.0)
[2018-04-15 07:17] LABS: ALB/GLOB RATIO 1.2 (1.1-1.8); ALBUMIN 3.5 g/dL (3.0-4.8); ALT/SGPT 23 U/L (7-56); AST/SGOT 14 U/L (14-36); BLOOD UREA NITROGEN 8 mg/dL (7-21); CALCIUM 8.5 mg/dL (8.4-10.5); GFR AFRICAN-AMERICAN > 60; GFR NON-AFRICAN AMERICAN > 60
[2018-04-15] MEDS ORDERED: Pantoprazole 40 mg EC Tab PO ONE (12:44)
--- NOTE | 2018-04-15 14:53 | CP.PCM.PN ---
<Maile Davis - Last Filed: 04/15/18 14:52> Subjective - Date & Time of Evaluation Date of Evaluation: 04/15/18 Time of Evaluation: 10:00 - Subjective Subjective: IM progress note for Dr. Mccullough-Maile Davis, PGY-1 Pt S & E at bedside at 0740 Pt reports continued, but improved Left flank pain. Admits to dysuria, urinary frequency, urgency. Denies N & V, F & C overnight. Tolerating diet. Ambulating. Objective - Vital Signs/Intake and Output Vital Signs (last 24 hours): Temp Pulse Resp BP Pulse Ox 98.2 F 43 L 18 117/82 100 04/15/18 14:00 04/15/18 14:00 04/15/18 14:00 04/15/18 14:00 04/15/18 14:00 Intake and Output: 04/15/18 04/15/18 06:59 18:59 Intake Total 180 Balance 180 - Medications Medications: Current Medications Acetaminophen (Tylenol 325mg Tab) 650 mg PO Q6H PRN PRN Reason: FEVER AND PAIN, MILD ( 1-3) Last Admin: 04/14/18 10:00 Dose: 650 mg Albuterol Sulfate (Albuterol 0.083% Inhal Josey (2.5 Mg/3 Ml) Ud) 2.5 mg IH TID PRN PRN Reason: Cough Doxycycline Hyclate (Doryx) 100 mg PO Q12 RUPERT PRN Reason: Protocol Stop: 04/23/18 10:01 Last Admin: 04/15/18 10:10 Dose: 100 mg Famotidine (Pepcid) 40 mg PO HS RUPERT Last Admin: 04/14/18 21:08 Dose: 40 mg Sodium Chloride (Sodium Chloride 0.9%) 1,000 mls @ 100 mls/hr IV .Q10H RUPERT Last Admin: 04/15/18 04:17 Dose: Not Given Aztreonam (Azactam 1 Gm) 100 mls @ 100 mls/hr IVPB Q8 RUPERT PRN Reason: Protocol Stop: 04/24/18 14:01 Last Admin: 04/15/18 05:39 Dose: 100 mls/hr Metronidazole (Flagyl) 500 mg in 100 mls @ 100 mls/hr IVPB Q8 RUPERT PRN Reason: Protocol Last Admin: 04/15/18 05:40 Dose: 100 mls/hr Ibuprofen (Motrin Tab) 400 mg PO Q6H PRN PRN Reason: Pain, moderate (4-7) Last Admin: 04/14/18 20:32 Dose: 400 mg Ondansetron HCl (Zofran Inj) 4 mg IVP Q4H PRN PRN Reason: Nausea/Vomiting Last Admin: 04/15/18 12:09 Dose: 4 mg Vitamin A (Vitamin A & D Oint Ud Foilpak) 1 ea TOP Q2 PRN PRN Reason: Dry mouth - Labs Labs: 04/15/18 06:30 04/15/18 06:30 - Constitutional Appears: Non-toxic, No Acute Distress - Head Exam Head Exam: ATRAUMATIC, NORMAL INSPECTION, NORMOCEPHALIC - Eye Exam Eye Exam: EOMI, Normal appearance - ENT Exam ENT Exam: Mucous Membranes Moist, Normal Exam - Neck Exam Neck Exam: Full ROM, Normal Inspection - Respiratory Exam Respiratory Exam: Clear to Ausculation Bilateral, NORMAL BREATHING PATTERN - Cardiovascular Exam Cardiovascular Exam: REGULAR RHYTHM, +S1, +S2 - GI/Abdominal Exam GI & Abdominal Exam: Soft, Normal Bowel Sounds. absent: Distended, Firm, Guarding, Rigid, Tenderness - Extremities Exam Extremities Exam: Normal Inspection. absent: Pedal Edema - Back Exam Back Exam: CVA tenderness (L) - Neurological Exam Neurological Exam: Alert, Awake, CN II-XII Intact, Oriented x3 - Psychiatric Exam Psychiatric exam: Normal Affect, Normal Mood - Skin Skin Exam: Dry, Intact, Normal Color, Warm Assessment and Plan - Assessment and Plan (Free Text) Assessment: 22F w/PMH sig for asthma, endometriosis, recurrent UTIs admitted for pyelonephritis Plan: Pyelonephritis Urine cx pos for E coli Blood cx neg x 24H HIV neg RPR neg T pallidum neg FU G & C Aztreonam Doxycycline NS@100 Zofran PRN Monitor ID following Diverticulitis Flagyl Monitor GI signed off- no GI active issues Hx endometriosis Inbuprofen PRN Hx asthma Albuterol PRN GI/DVT ppx Pepcid SCDs Ambulate Dispo: Regular diet OOBTC Activity as aminah DW attending Susan, PGY-1 <Osman Mccullough - Last Filed: 04/16/18 14:56> Objective - Vital Signs/Intake and Output Vital Signs (last 24 hours): Temp Pulse Resp BP Pulse Ox 97.5 F L 59 L 20 108/72 99 04/16/18 06:00 04/16/18 06:00 04/16/18 06:00 04/16/18 06:00 04/16/18 06:00 Intake and Output: 04/16/18 04/16/18 06:59 18:59 Intake Total 1200 640 Balance 1200 640 - Medications Medications: Current Medications Acetaminophen (Tylenol 325mg Tab) 650 mg PO Q6H PRN PRN Reason: FEVER AND PAIN, MILD ( 1-3) Last Admin: 04/14/18 10:00 Dose: 650 mg Albuterol Sulfate (Albuterol 0.083% Inhal Josey (2.5 Mg/3 Ml) Ud) 2.5 mg IH TID PRN PRN Reason: Cough Doxycycline Hyclate (Doryx) 100 mg PO Q12 RUPERT PRN Reason: Protocol Stop: 04/23/18 10:01 Last Admin: 04/16/18 09:09 Dose: 100 mg Famotidine (Pepcid) 40 mg PO HS RUPERT Last Admin: 04/15/18 21:15 Dose: 40 mg Sodium Chloride (Sodium Chloride 0.9%) 1,000 mls @ 100 mls/hr IV .Q10H RUPERT Last Admin: 04/16/18 11:13 Dose: 100 mls/hr Aztreonam (Azactam 1 Gm) 100 mls @ 100 mls/hr IVPB Q8 RUPERT PRN Reason: Protocol Stop: 04/24/18 14:01 Last Admin: 04/16/18 14:03 Dose: 100 mls/hr Metronidazole (Flagyl) 500 mg in 100 mls @ 100 mls/hr IVPB Q8 RUPERT PRN Reason: Protocol Last Admin: 04/16/18 05:28 Dose: 100 mls/hr Ibuprofen (Motrin Tab) 400 mg PO Q6H PRN PRN Reason: Pain, moderate (4-7) Last Admin: 04/15/18 20:03 Dose: 400 mg Ondansetron HCl (Zofran Inj) 4 mg IVP Q4H PRN PRN Reason: Nausea/Vomiting Last Admin: 04/15/18 12:09 Dose: 4 mg Vitamin A (Vitamin A & D Oint Ud Foilpak) 1 ea TOP Q2 PRN PRN Reason: Dry mouth - Labs Labs: 04/16/18 06:35 04/16/18 06:35 Attending/Attestation - Attestation I have personally seen and examined this patient.: Yes I have fully participated in the care of the patient.: Yes I have reviewed all pertinent clinical information, including history, physical exam and plan: Yes Notes (Text): 04/16/18 14:55 Attending note; Patient seen and examined with resident. Patient's mother by the bedside. Patient is a 22-year-old female with a history of asthma, endometriosis, UTI is admitted with left flank pain. Patient is afebrile and nontoxic. Left flank pain is improving. CT consistent with left pyelonephritis. CAT scan also showed possible diverticulitis. GI evaluation appreciated. Diverticulitis less likely. Tolerating diet well. Denies any abdominal pain. Currently patient is on IV Azactam, Flagyl and doxycycline. ID evaluation appreciated. Patient denies any vaginal discharge; chlamydia and gonorrhea workup ordered. RPR, HIV is negative. Urine culture is positive for Escherichia coli. Upon discharge the patient will follow-up with PMD Dr. Browning.
--- NOTE | 2018-04-16 01:21 | PN ---
DATE: 04/15/2018 SUBJECTIVE: Patient is in bed, in no acute distress, was seen early this morning. She states she is doing much better. Her mother was present in the room. PHYSICAL EXAMINATION: VITAL SIGNS: Temperature 98, T-max is 100.1, respiratory rate of 18, heart rate of 72. HEENT: Unremarkable. NECK: Supple. LUNGS: Decreased breath sounds. HEART: Normal S1, S2. ABDOMEN: Soft, nontender. LABORATORY DATA: Laboratory examination reveals the patient's white count is 7.1, hemoglobin of 11. Chemistries reveal BUN of 8, creatinine of 0.8, procalcitonin is less than 0.05, beta hCG is negative. Urinalysis is noted with 25 to 30 wbc's. Patient's RPR is negative. FTA is negative. HIV is negative. Microbiology reveals E. coli in the urine. Blood cultures have no growth. E. coli is pansensitive and is resistant to ampicillin. MEDICATIONS: Currently the patient is on aztreonam, doxycycline, and Flagyl. ASSESSMENT AND PLAN: A 22-year-old female admitted with left-sided abdominal pain, back pain, and history of endometriosis, asthma. #1 is left pyelonephritis with Escherichia coli, with ALLERGY TO CEPHALEXIN, type 1 anaphylactic type, on aztreonam, Flagyl, and doxycycline. Pelvic inflammatory disease workup in progress. Patient appears to be improving. Facundo Sargent MD
[2018-04-16] MEDS: Aztreonam 1 Gm in NS 100mL 100 ML IVPB SCH ×3 (05:27→21:43)
[2018-04-16] MEDS: metroNIDAZOLE IV 500 mg/100 ml 500 MG/100 ML BAG IVPB SCH ×3 (05:28→21:42)
[2018-04-16 07:12] LABS: BASO # 0.01 K/mm3 (0.0-2.0); BASO % 0.2 % (0.0-3.0); EOS # 0.1 (0.0-0.7); GRAN # 2.97 (1.4-6.5); GRAN % 50.2 % (50.0-68.0); HEMOGLOBIN 10.9 g/dL (12.0-16.0); LYMPH # 1.7 (1.2-3.4); MEAN CELL VOLUME 87.5 fl (80.0-105.0); MEAN CORPUSCULAR HGB CONC 33.1 g/dl (31.0-37.0); MEAN PLATELET VOLUME 9.7 fl (7.0-11.0); MONO # 1.2 (0.1-0.6); MONO % 20.6 % (1.0-6.0); PLATELET COUNT 185 10^3/uL (120.0-450.0); RBC 3.76 10^6/uL (3.5-6.1); RED CELL DISTRIBUTION WIDTH 12.8 % (11.5-14.5); WHITE BLOOD COUNT 5.9 10^3/ul (4.5-11.0)
[2018-04-16 07:20] LABS: ALB/GLOB RATIO 1.1 (1.1-1.8); ALBUMIN 3.3 g/dL (3.0-4.8); ALT/SGPT 25 U/L (7-56); AST/SGOT 15 U/L (14-36); BLOOD UREA NITROGEN 6 mg/dL (7-21); CALCIUM 8.3 mg/dL (8.4-10.5); GFR AFRICAN-AMERICAN > 60; GFR NON-AFRICAN AMERICAN > 60
[2018-04-16 08:21] LABS: BASOPHIL 1 % (0.0-1.0); EOSINOPHIL 2 % (0.0-3.0); LYMPHOCYTE 27 % (22.0-35.0); MONOCYTE 9 % (1.0-6.0); NEUTROPHIL 61 % (50.0-70.0)
[2018-04-16 08:22] LABS: PLATELET ESTIMATE NORMAL (NORMAL)
[2018-04-16] MEDS: Sodium Chloride 0.9% 1,000 ML IV SCH (11:13)
[2018-04-16] MEDS ORDERED: Pantoprazole 40 mg EC Tab PO ONE (12:34)
--- NOTE | 2018-04-16 14:56 | CP.PCM.PN ---
<Viviana Jerome - Last Filed: 04/16/18 15:00> Subjective - Date & Time of Evaluation Date of Evaluation: 04/16/18 Time of Evaluation: 07:00 - Subjective Subjective: PGY-[address] Mccullough Pt seen and examined. Denies f/c, suprapubic tenderness, dysuria, CP, SOB, N/V/D /C. Objective - Vital Signs/Intake and Output Vital Signs (last 24 hours): Temp Pulse Resp BP Pulse Ox 97.5 F L 59 L 20 108/72 99 04/16/18 06:00 04/16/18 06:00 04/16/18 06:00 04/16/18 06:00 04/16/18 06:00 Intake and Output: 04/16/18 04/16/18 06:59 18:59 Intake Total 1200 640 Balance 1200 640 - Medications Medications: Current Medications Acetaminophen (Tylenol 325mg Tab) 650 mg PO Q6H PRN PRN Reason: FEVER AND PAIN, MILD ( 1-3) Last Admin: 04/14/18 10:00 Dose: 650 mg Albuterol Sulfate (Albuterol 0.083% Inhal Josey (2.5 Mg/3 Ml) Ud) 2.5 mg IH TID PRN PRN Reason: Cough Doxycycline Hyclate (Doryx) 100 mg PO Q12 RUPERT PRN Reason: Protocol Stop: 04/23/18 10:01 Last Admin: 04/16/18 09:09 Dose: 100 mg Famotidine (Pepcid) 40 mg PO HS RUPERT Last Admin: 04/15/18 21:15 Dose: 40 mg Sodium Chloride (Sodium Chloride 0.9%) 1,000 mls @ 100 mls/hr IV .Q10H RUPERT Last Admin: 04/16/18 11:13 Dose: 100 mls/hr Aztreonam (Azactam 1 Gm) 100 mls @ 100 mls/hr IVPB Q8 RUPERT PRN Reason: Protocol Stop: 04/24/18 14:01 Last Admin: 04/16/18 14:03 Dose: 100 mls/hr Metronidazole (Flagyl) 500 mg in 100 mls @ 100 mls/hr IVPB Q8 RUPERT PRN Reason: Protocol Last Admin: 04/16/18 05:28 Dose: 100 mls/hr Ibuprofen (Motrin Tab) 400 mg PO Q6H PRN PRN Reason: Pain, moderate (4-7) Last Admin: 04/15/18 20:03 Dose: 400 mg Ondansetron HCl (Zofran Inj) 4 mg IVP Q4H PRN PRN Reason: Nausea/Vomiting Last Admin: 04/15/18 12:09 Dose: 4 mg Vitamin A (Vitamin A & D Oint Ud Foilpak) 1 ea TOP Q2 PRN PRN Reason: Dry mouth - Labs Labs: 04/16/18 06:35 04/16/18 06:35 - Constitutional Appears: No Acute Distress - Head Exam Head Exam: ATRAUMATIC, NORMAL INSPECTION, NORMOCEPHALIC - Eye Exam Eye Exam: EOMI, Normal appearance, PERRL. absent: Scleral icterus Pupil Exam: NORMAL ACCOMODATION, PERRL - ENT Exam ENT Exam: Mucous Membranes Moist - Neck Exam Additional comments: supple, No JVD - Respiratory Exam Respiratory Exam: Clear to Ausculation Bilateral, NORMAL BREATHING PATTERN. absent: Rales, Rhonchi, Wheezes - Cardiovascular Exam Cardiovascular Exam: REGULAR RHYTHM, +S1, +S2. absent: Murmur - GI/Abdominal Exam GI & Abdominal Exam: Soft, Normal Bowel Sounds. absent: Guarding, Rigid, Tenderness - Extremities Exam Extremities Exam: Normal Capillary Refill. absent: Calf Tenderness - Back Exam Back Exam: CVA tenderness (L). absent: CVA tenderness (R) - Neurological Exam Neurological Exam: Alert, Awake, Normal Gait, Oriented x3 - Psychiatric Exam Psychiatric exam: Normal Affect, Normal Mood - Skin Skin Exam: Dry, Warm Assessment and Plan - Assessment and Plan (Free Text) Plan: 22F w/PMH sig for asthma, endometriosis, recurrent UTIs admitted for pyelonephritis. Today, pt still have L CVA tenderness. Plan: Pyelonephritis Cephalaxin allergy - Aztreonam, Doxycycline, Flagyl - Urine cx: E coli - Blood cx neg x 2d - HIV, PRP, T pallidum neg - NS@100 - Zofran PRN Has ruled out Diverticulitis - GI signed off- no GI active issues Hx endometriosis - Inbuprofen PRN Hx asthma - Albuterol PRN GI/DVT ppx - Pepcid - SCDs - Ambulate Dispo: - Regular diet - OOBTC - Activity as aminah - Home tomorrow s/r/d/w Dr. Mccullough <Osman Mccullough - Last Filed: 04/17/18 16:05> Objective - Vital Signs/Intake and Output Vital Signs (last 24 hours): Temp Pulse Resp BP Pulse Ox 98 F 55 L 20 109/63 100 04/17/18 06:00 04/17/18 06:00 04/17/18 06:00 04/17/18 06:00 04/17/18 06:00 Intake and Output: 04/17/18 04/17/18 06:59 18:59 Intake Total 1080 1860 Balance 1080 1860 - Labs Labs: 04/17/18 08:15 04/17/18 08:15 Attending/Attestation - Attestation I have personally seen and examined this patient.: Yes I have fully participated in the care of the patient.: Yes I have reviewed all pertinent clinical information, including history, physical exam and plan: Yes Notes (Text): 04/17/18 16:05 Attending note; Patient seen and examined with resident. Patient is a 22-year-old female with a history of asthma, endometriosis, UTI is admitted with left flank pain. Patient is afebrile and nontoxic. Left flank pain is improving. CT consistent with left pyelonephritis. CAT scan also showed possible diverticulitis. GI evaluation appreciated. Diverticulitis less likely. Tolerating diet well. Denies any abdominal pain. Currently patient is on IV Azactam, Flagyl and doxycycline. ID evaluation appreciated. Patient denies any vaginal discharge; chlamydia and gonorrhea workup ordered. RPR, HIV is negative. Urine culture is positive for Escherichia coli. Upon discharge the patient will follow-up with PMD Dr. Browning.
[2018-04-16 16:46] VITALS: O2SAT 100
--- NOTE | 2018-04-16 21:37 | CP.PCM.PN ---
Subjective - Date & Time of Evaluation Date of Evaluation: 04/16/18 Time of Evaluation: 11:25 - Subjective Subjective: No fevers, not in distress, still with left sided flank pain but less, no nausea , no abdominal pain. Objective - Vital Signs/Intake and Output Vital Signs (last 24 hours): Temp Pulse Resp BP Pulse Ox 98.2 F 64 18 119/83 100 04/16/18 14:00 04/16/18 14:00 04/16/18 14:00 04/16/18 14:00 04/16/18 14:00 Intake and Output: 04/16/18 04/17/18 18:59 06:59 Intake Total 640 Balance 640 - Medications Medications: Current Medications Acetaminophen (Tylenol 325mg Tab) 650 mg PO Q6H PRN PRN Reason: FEVER AND PAIN, MILD ( 1-3) Last Admin: 04/14/18 10:00 Dose: 650 mg Albuterol Sulfate (Albuterol 0.083% Inhal Josey (2.5 Mg/3 Ml) Ud) 2.5 mg IH TID PRN PRN Reason: Cough Doxycycline Hyclate (Doryx) 100 mg PO Q12 RUPERT PRN Reason: Protocol Stop: 04/23/18 10:01 Last Admin: 04/16/18 09:09 Dose: 100 mg Famotidine (Pepcid) 40 mg PO HS [facility] Last Admin: 04/15/18 21:15 Dose: 40 mg Sodium Chloride (Sodium Chloride 0.9%) 1,000 mls @ 100 mls/hr IV .Q10H [facility] Last Admin: 04/16/18 11:13 Dose: 100 mls/hr Aztreonam (Azactam 1 Gm) 100 mls @ 100 mls/hr IVPB Q8 RUPERT PRN Reason: Protocol Stop: 04/24/18 14:01 Last Admin: 04/16/18 14:03 Dose: 100 mls/hr Metronidazole (Flagyl) 500 mg in 100 mls @ 100 mls/hr IVPB Q8 RUPERT PRN Reason: Protocol Last Admin: 04/16/18 15:07 Dose: 100 mls/hr Ibuprofen (Motrin Tab) 400 mg PO Q6H PRN PRN Reason: Pain, moderate (4-7) Last Admin: 04/15/18 20:03 Dose: 400 mg Ondansetron HCl (Zofran Inj) 4 mg IVP Q4H PRN PRN Reason: Nausea/Vomiting Last Admin: 04/15/18 12:09 Dose: 4 mg Vitamin A (Vitamin A & D Oint Ud Foilpak) 1 ea TOP Q2 PRN PRN Reason: Dry mouth - Labs Labs: 04/16/18 06:35 04/16/18 06:35 - Constitutional Appears: Chronically Ill - Head Exam Head Exam: NORMAL INSPECTION - ENT Exam ENT Exam: Mucous Membranes Moist - Neck Exam Neck Exam: absent: Meningismus - Respiratory Exam Respiratory Exam: Decreased Breath Sounds - Cardiovascular Exam Cardiovascular Exam: +S1, +S2 - GI/Abdominal Exam GI & Abdominal Exam: Soft. absent: Tenderness Assessment and Plan - Assessment and Plan (Free Text) Plan: Assessment Left sided pyelonephritis with E. coli, R/O PID endometriosis asthma Plan Continue Azactam, Flagyl and Doxycycline and will follow up urine GC NAAT will monitor clinically
[2018-04-17] MEDS: Aztreonam 1 Gm in NS 100mL 100 ML IVPB SCH (05:19)
[2018-04-17] MEDS: metroNIDAZOLE IV 500 mg/100 ml 500 MG/100 ML BAG IVPB SCH (05:22)
[2018-04-17 08:27] LABS: BASO # 0.02 K/mm3 (0.0-2.0); BASO % 0.3 % (0.0-3.0); EOS # 0.1 (0.0-0.7); EOS % 1.1 % (1.5-5.0); GRAN # 3.48 (1.4-6.5); GRAN % 56.4 % (50.0-68.0); HEMOGLOBIN 11.9 g/dL (12.0-16.0); LYMPH # 1.9 (1.2-3.4); LYMPH % 29.9 % (22.0-35.0); MEAN CELL VOLUME 87.6 fl (80.0-105.0); MEAN CORPUSCULAR HGB CONC 33.1 g/dl (31.0-37.0); MEAN PLATELET VOLUME 9.4 fl (7.0-11.0); MONO # 0.8 (0.1-0.6); MONO % 12.3 % (1.0-6.0); RBC 4.11 10^6/uL (3.5-6.1); RED CELL DISTRIBUTION WIDTH 12.7 % (11.5-14.5); WHITE BLOOD COUNT 6.2 10^3/ul (4.5-11.0)
[2018-04-17 08:41] LABS: ALB/GLOB RATIO 1.3 (1.1-1.8); ALBUMIN 3.8 g/dL (3.0-4.8); ALT/SGPT 28 U/L (7-56); AST/SGOT 21 U/L (14-36); BLOOD UREA NITROGEN 9 mg/dL (7-21); CALCIUM 8.8 mg/dL (8.4-10.5); GFR AFRICAN-AMERICAN > 60; GFR NON-AFRICAN AMERICAN > 60
[2018-04-17 09:08] VITALS: BP 109/63; PULSE 55; RESP 20; TEMP 98
[2018-04-17] MEDS: Sodium Chloride 0.9% 1,000 ML IV SCH (09:49)
--- NOTE | 2018-04-17 11:40 | CP.PCM.DIS ---
<Maile Davis - Last Filed: 04/17/18 11:38> Provider - Provider Date of Admission: 04/13/18 20:23 Attending physician: Osman Mccullough MD Primary care physician: Lai Browning MD Consults: ID GI Time Spent in preparation of Discharge (in minutes): 35 Hospital Course - Lab Results Lab Results: Most Recent Lab Values WBC 6.2 10^3/ul (4.5-11.0) 04/17/18 08:15 RBC 4.11 10^6/uL (3.5-6.1) 04/17/18 08:15 Hgb 11.9 g/dL (12.0-16.0) L 04/17/18 08:15 Hct 36.0 % (36.0-48.0) 04/17/18 08:15 MCV 87.6 fl (80.0-105.0) 04/17/18 08:15 MCH 29.0 pg (25.0-35.0) 04/17/18 08:15 MCHC 33.1 g/dl (31.0-37.0) 04/17/18 08:15 RDW 12.7 % (11.5-14.5) 04/17/18 08:15 Plt Count 214 10^3/uL (120.0-450.0) 04/17/18 08:15 MPV 9.4 fl (7.0-11.0) 04/17/18 08:15 Gran % 56.4 % (50.0-68.0) 04/17/18 08:15 Lymph % (Auto) 29.9 % (22.0-35.0) 04/17/18 08:15 [place] % (Auto) 12.3 % (1.0-6.0) H 04/17/18 08:15 Eos % (Auto) 1.1 % (1.5-5.0) L 04/17/18 08:15 Baso % (Auto) 0.3 % (0.0-3.0) 04/17/18 08:15 Gran # 3.48 (1.4-6.5) 04/17/18 08:15 Lymph # (Auto) 1.9 (1.2-3.4) 04/17/18 08:15 [place] # (Auto) 0.8 (0.1-0.6) H 04/17/18 08:15 Eos # (Auto) 0.1 (0.0-0.7) 04/17/18 08:15 Baso # (Auto) 0.02 K/mm3 (0.0-2.0) 04/17/18 08:15 Neutrophils % (Manual) 61 % (50.0-70.0) 04/16/18 06:35 Lymphocytes % (Manual) 27 % (22.0-35.0) 04/16/18 06:35 Monocytes % (Manual) 9 % (1.0-6.0) H 04/16/18 06:35 Eosinophils % (Manual) 2 % (0.0-3.0) 04/16/18 06:35 Basophils % (Manual) 1 % (0.0-1.0) 04/16/18 06:35 Platelet Evaluation Normal (NORMAL) 04/16/18 06:35 Sodium 145 mmol/L (132-148) 04/17/18 08:15 Potassium 3.8 mmol/L (3.6-5.0) 04/17/18 08:15 Chloride 110 mmol/L (98-107) H 04/17/18 08:15 Carbon Dioxide 22 mmol/L (21-33) 04/17/18 08:15 Anion Gap 17 (10-20) 04/17/18 08:15 BUN 9 mg/dL (7-21) 04/17/18 08:15 Creatinine 0.7 mg/dl (0.7-1.2) 04/17/18 08:15 Est GFR ( Amer) > 60 04/17/18 08:15 Est GFR (Non-Af Amer) > 60 04/17/18 08:15 Random Glucose 96 mg/dL (70-110) 04/17/18 08:15 Calcium 8.8 mg/dL (8.4-10.5) 04/17/18 08:15 Total Bilirubin 0.3 mg/dL (0.2-1.3) 04/17/18 08:15 AST 21 U/L (14-36) 04/17/18 08:15 ALT 28 U/L (7-56) 04/17/18 08:15 Alkaline Phosphatase 63 U/L (38-126) 04/17/18 08:15 Total Protein 6.9 g/dL (5.8-8.3) 04/17/18 08:15 Albumin 3.8 g/dL (3.0-4.8) 04/17/18 08:15 Globulin 3.0 gm/dL 04/17/18 08:15 Albumin/Globulin Ratio 1.3 (1.1-1.8) 04/17/18 08:15 Lipase 13 U/L (23-300) L 04/13/18 17:00 Procalcitonin < 0.05 NG/ML (0.19-0.49) L 04/13/18 21:00 Beta HCG, Quant < 2.39 mIU/mL (0-6.15) 04/15/18 10:00 Urine Color Yellow (YELLOW) 04/13/18 16:30 Urine Appearance Clear (CLEAR) 04/13/18 16:30 Urine pH 7.0 (4.7-8.0) 04/13/18 16:30 Ur Specific [place] 1.010 (1.005-1.035) 04/13/18 16:30 Urine Protein 30 mg/dL (<30 mg/dL) H 04/13/18 16:30 Urine Glucose (UA) Negative mg/dL (NEGATIVE) 04/13/18 16:30 Urine Ketones Negative mg/dL (NEGATIVE) 04/13/18 16:30 Urine Blood Small (NEGATIVE) H 04/13/18 16:30 Urine Nitrate Negative (NEGATIVE) 04/13/18 16:30 Urine Bilirubin Negative (NEGATIVE) 04/13/18 16:30 Urine Urobilinogen 0.2 E.U./dL (<1 E.U./dL) 04/13/18 16:30 Ur Leukocyte Esterase Large Tam/uL (NEGATIVE) H 04/13/18 16:30 Urine RBC 5 - 10 /hpf (0-2) 04/13/18 16:30 Urine WBC 25 - 30 /hpf (0-6) 04/13/18 16:30 Ur Epithelial Cells 4 - 5 /hpf (0-5) 04/13/18 16:30 Urine Bacteria Many (NEG) 04/13/18 16:30 Urine Other Uyeast 04/13/18 16:30 RPR Nonreactive (NONREACTIVE) 04/14/18 09:10 T.pallidum Ab (FTA-ABS) Nonreactive (Nonreactive) 04/14/18 09:10 HIV 1&2 Ag/Ab, 4th Gen Nonreactive (Nonreactive) 04/14/18 09:10 - Hospital Course Hospital Course: 22 year old female with a past medical history of asthma, endometriosis and recurrent UTI's who presents with two days of left flank pain and LLQ/ hypogastric abdominal pain. Patient reports that one week ago she was seen at [facility] for dysuria with hematuria and was discharged on a seven day course of Macrobid. Patient reports completing the full course of this antibiotic but that two days ago, while still on Macrobid, she began to develop left flank pain and LLQ/hypogastric pain, which was described as 6/10 non-radiating crampy pain. She thought that this may go away with completion of her antibiotic and when it did not she decided to be seen for further evaluation. She endorses intermittent nausea but denies any fevers, chills, headache, changes in her vision, chest pain, palpitations, SOB, cough, wheezing, sputum production, vomiting, diarrhea, constipation, further dysuria, further hematuria, pyuria, skin lesions, vaginal discharge, or any numbness/tingling/weakness of any extremity. Pt admitted for pyleonephritis, started on Abx and IVF with pain mgmt. CT abdomen positive for rectosigmoid diverticulitis, started on Flagyl. Continued on home meds: OCP and albuterol inhaler. GI saw/evaluated pt for possible diverticulitis- no GI intervention recommended. ID saw/evaluated pt w/recs for Abx. Patient with improved CVA tenderness, decreased urinary symptoms over course of hospitalization. Pt stable and ready for d/c home on PO Abx as per ID. Pt instructed to follow up with PMD after discharge. Diagnoses Pyleonephritis recurrent UTIs Asthma hx endometriosis - Date & Time of H&P Date of H&P: 04/13/18 Time of H&P: 23:24 Discharge Exam - Head Exam Head Exam: ATRAUMATIC, NORMAL INSPECTION, NORMOCEPHALIC - Eye Exam Eye Exam: EOMI, Normal appearance - ENT Exam ENT Exam: Mucous Membranes Moist, Normal Exam - Neck Exam Neck exam: Full Rom, Normal Inspection - Respiratory Exam Respiratory Exam: Clear to PA & Lateral, NORMAL BREATHING PATTERN, UNREMARKABLE - Cardiovascular Exam Cardiovascular Exam: REGULAR RHYTHM, +S1, +S2 - GI/Abdominal Exam GI & Abdominal Exam: Normal Bowel Sounds, Soft, Unremarkable. absent: Tenderness - Extremities Exam Extremities exam: normal inspection - Back Exam Back exam: CVA tenderness (L) (minimal), NORMAL INSPECTION - Neurological Exam Neurological exam: Alert, CN II-XII Intact, Oriented x3 - Psychiatric Exam Psychiatric exam: Normal Affect, Normal Mood - Skin Skin Exam: Dry, Intact, Normal Color, Warm Discharge Plan - Discharge Medications Prescriptions: Ciprofloxacin [Cipro] 500 mg PO BID #20 tab Metronidazole [Flagyl] 500 mg PO TID #30 tablet - Follow Up Plan Condition: STABLE Disposition: HOME/ ROUTINE Instructions: Kidney Infection (DC), Urinary Tract Infection in Women (DC) Additional Instructions: Please take all medications as directed. Eat yogurt when you take antibiotics as previously discussed. Drink water. Please follow up with your primary care provider in 1-2 weeks after discharge. We will call you if you have a positive STD result, otherwise if it is negative, we will not call you. Please return to hospital if you have a recurrence of symptoms. You may take Motrin at home if you have any discomfort. Referrals: Lai Browning [Primary Care Provider] - <Osman Mccullough - Last Filed: 04/17/18 16:08> Provider - Provider Date of Admission: 04/13/18 20:23 Attending physician: Osman Mccullough MD Primary care physician: Lai Browning MD Hospital Course - Lab Results Lab Results: Most Recent Lab Values WBC 6.2 10^3/ul (4.5-11.0) 04/17/18 08:15 RBC 4.11 10^6/uL (3.5-6.1) 04/17/18 08:15 Hgb 11.9 g/dL (12.0-16.0) L 04/17/18 08:15 Hct 36.0 % (36.0-48.0) 04/17/18 08:15 MCV 87.6 fl (80.0-105.0) 04/17/18 08:15 MCH 29.0 pg (25.0-35.0) 04/17/18 08:15 MCHC 33.1 g/dl (31.0-37.0) 04/17/18 08:15 RDW 12.7 % (11.5-14.5) 04/17/18 08:15 Plt Count 214 10^3/uL (120.0-450.0) 04/17/18 08:15 MPV 9.4 fl (7.0-11.0) 04/17/18 08:15 Gran % 56.4 % (50.0-68.0) 04/17/18 08:15 Lymph % (Auto) 29.9 % (22.0-35.0) 04/17/18 08:15 [place] % (Auto) 12.3 % (1.0-6.0) H 04/17/18 08:15 Eos % (Auto) 1.1 % (1.5-5.0) L 04/17/18 08:15 Baso % (Auto) 0.3 % (0.0-3.0) 04/17/18 08:15 Gran # 3.48 (1.4-6.5) 04/17/18 08:15 Lymph # (Auto) 1.9 (1.2-3.4) 04/17/18 08:15 [place] # (Auto) 0.8 (0.1-0.6) H 04/17/18 08:15 Eos # (Auto) 0.1 (0.0-0.7) 04/17/18 08:15 Baso # (Auto) 0.02 K/mm3 (0.0-2.0) 04/17/18 08:15 Neutrophils % (Manual) 61 % (50.0-70.0) 04/16/18 06:35 Lymphocytes % (Manual) 27 % (22.0-35.0) 04/16/18 06:35 Monocytes % (Manual) 9 % (1.0-6.0) H 04/16/18 06:35 Eosinophils % (Manual) 2 % (0.0-3.0) 04/16/18 06:35 Basophils % (Manual) 1 % (0.0-1.0) 04/16/18 06:35 Platelet Evaluation Normal (NORMAL) 04/16/18 06:35 Sodium 145 mmol/L (132-148) 04/17/18 08:15 Potassium 3.8 mmol/L (3.6-5.0) 04/17/18 08:15 Chloride 110 mmol/L (98-107) H 04/17/18 08:15 Carbon Dioxide 22 mmol/L (21-33) 04/17/18 08:15 Anion Gap 17 (10-20) 04/17/18 08:15 BUN 9 mg/dL (7-21) 04/17/18 08:15 Creatinine 0.7 mg/dl (0.7-1.2) 04/17/18 08:15 Est GFR ( Amer) > 60 04/17/18 08:15 Est GFR (Non-Af Amer) > 60 04/17/18 08:15 Random Glucose 96 mg/dL (70-110) 04/17/18 08:15 Calcium 8.8 mg/dL (8.4-10.5) 04/17/18 08:15 Total Bilirubin 0.3 mg/dL (0.2-1.3) 04/17/18 08:15 AST 21 U/L (14-36) 04/17/18 08:15 ALT 28 U/L (7-56) 04/17/18 08:15 Alkaline Phosphatase 63 U/L (38-126) 04/17/18 08:15 Total Protein 6.9 g/dL (5.8-8.3) 04/17/18 08:15 Albumin 3.8 g/dL (3.0-4.8) 04/17/18 08:15 Globulin 3.0 gm/dL 04/17/18 08:15 Albumin/Globulin Ratio 1.3 (1.1-1.8) 04/17/18 08:15 Lipase 13 U/L (23-300) L 04/13/18 17:00 Procalcitonin < 0.05 NG/ML (0.19-0.49) L 04/13/18 21:00 Beta HCG, Quant < 2.39 mIU/mL (0-6.15) 04/15/18 10:00 Urine Color Yellow (YELLOW) 04/13/18 16:30 Urine Appearance Clear (CLEAR) 04/13/18 16:30 Urine pH 7.0 (4.7-8.0) 04/13/18 16:30 Ur Specific [place] 1.010 (1.005-1.035) 04/13/18 16:30 Urine Protein 30 mg/dL (<30 mg/dL) H 04/13/18 16:30 Urine Glucose (UA) Negative mg/dL (NEGATIVE) 04/13/18 16:30 Urine Ketones Negative mg/dL (NEGATIVE) 04/13/18 16:30 Urine Blood Small (NEGATIVE) H 04/13/18 16:30 Urine Nitrate Negative (NEGATIVE) 04/13/18 16:30 Urine Bilirubin Negative (NEGATIVE) 04/13/18 16:30 Urine Urobilinogen 0.2 E.U./dL (<1 E.U./dL) 04/13/18 16:30 Ur Leukocyte Esterase Large Tam/uL (NEGATIVE) H 04/13/18 16:30 Urine RBC 5 - 10 /hpf (0-2) 04/13/18 16:30 Urine WBC 25 - 30 /hpf (0-6) 04/13/18 16:30 Ur Epithelial Cells 4 - 5 /hpf (0-5) 04/13/18 16:30 Urine Bacteria Many (NEG) 04/13/18 16:30 Urine Other Uyeast 04/13/18 16:30 RPR Nonreactive (NONREACTIVE) 04/14/18 09:10 T.pallidum Ab (FTA-ABS) Nonreactive (Nonreactive) 04/14/18 09:10 HIV 1&2 Ag/Ab, 4th Gen Nonreactive (Nonreactive) 04/14/18 09:10 Attending/Attestation - Attestation I have personally seen and examined this patient.: Yes I have fully participated in the care of the patient.: Yes I have reviewed all pertinent clinical information, including history, physical exam and plan: Yes Notes (Text): 04/17/18 16:06 Attending note; Patient seen and examined with resident. Patient is a 22-year-old female with a history of asthma, endometriosis, UTI is admitted with left flank pain. Patient is afebrile and nontoxic. Left flank pain resolved. CT consistent with left pyelonephritis. Currently patient is on IV Azactam, Flagyl and doxycycline. ID evaluation appreciated. Patient denies any vaginal discharge; chlamydia and gonorrhea workup ordered. RPR, HIV is negative. Urine culture is positive for Escherichia coli. Patient will be discharged home with by mouth ciprofloxacin and Flagyl. EKG showed T-wave inversion in the lateral leads same as previous admissions. QTC is normal. Upon discharge the patient will follow-up with PMD Dr. Browning. Diagnosis; Acute left pyelonephritis E coli UTI Endometriosis Anemia
--- NOTE | 2018-04-17 15:55 | CP.PCM.PN ---
Subjective - Date & Time of Evaluation Date of Evaluation: 04/17/18 Time of Evaluation: 11:00 - Subjective Subjective: Feels she has gas pains. Left flank pain has improved, no fevers, no nausea. Not in distress. Objective - Vital Signs/Intake and Output Vital Signs (last 24 hours): Temp Pulse Resp BP Pulse Ox 98 F 55 L 20 109/63 100 04/17/18 06:00 04/17/18 06:00 04/17/18 06:00 04/17/18 06:00 04/17/18 06:00 Intake and Output: 04/17/18 04/17/18 06:59 18:59 Intake Total 1080 Balance 1080 - Medications Medications: Current Medications Acetaminophen (Tylenol 325mg Tab) 650 mg PO Q6H PRN PRN Reason: FEVER AND PAIN, MILD ( 1-3) Last Admin: 04/14/18 10:00 Dose: 650 mg Albuterol Sulfate (Albuterol 0.083% Inhal Josey (2.5 Mg/3 Ml) Ud) 2.5 mg IH TID PRN PRN Reason: Cough Doxycycline Hyclate (Doryx) 100 mg PO Q12 RUPERT PRN Reason: Protocol Stop: 04/23/18 10:01 Last Admin: 04/16/18 21:43 Dose: 100 mg Famotidine (Pepcid) 40 mg PO HS [facility] Last Admin: 04/16/18 21:43 Dose: 40 mg Sodium Chloride (Sodium Chloride 0.9%) 1,000 mls @ 100 mls/hr IV .Q10H [facility] Last Admin: 04/16/18 11:13 Dose: 100 mls/hr Aztreonam (Azactam 1 Gm) 100 mls @ 100 mls/hr IVPB Q8 RUPERT PRN Reason: Protocol Stop: 04/24/18 14:01 Last Admin: 04/17/18 05:19 Dose: 100 mls/hr Metronidazole (Flagyl) 500 mg in 100 mls @ 100 mls/hr IVPB Q8 RUPERT PRN Reason: Protocol Last Admin: 04/17/18 05:22 Dose: 100 mls/hr Ibuprofen (Motrin Tab) 400 mg PO Q6H PRN PRN Reason: Pain, moderate (4-7) Last Admin: 04/15/18 20:03 Dose: 400 mg Ondansetron HCl (Zofran Inj) 4 mg IVP Q4H PRN PRN Reason: Nausea/Vomiting Last Admin: 04/16/18 22:36 Dose: 4 mg Vitamin A (Vitamin A & D Oint Ud Foilpak) 1 ea TOP Q2 PRN PRN Reason: Dry mouth - Labs Labs: 04/17/18 08:15 04/17/18 08:15 - Constitutional Appears: Non-toxic - Head Exam Head Exam: NORMAL INSPECTION - ENT Exam ENT Exam: Mucous Membranes Moist - Neck Exam Neck Exam: absent: Meningismus - Respiratory Exam Respiratory Exam: absent: Rales, Rhonchi - Cardiovascular Exam Cardiovascular Exam: +S1, +S2 - GI/Abdominal Exam GI & Abdominal Exam: Soft. absent: Tenderness Assessment and Plan - Assessment and Plan (Free Text) Plan: Assessment Left sided pyelonephritis with E. coli, R/O PID endometriosis asthma Plan Continue Azactam, Flagyl and Doxycycline and will follow up urine GC NAAT - patient can be switched to PO Ciprofloxacin and Flagyl to complete 7-10 days of therapy recommend follow up with [facility] as an outpatient noted QTc on EKG to be below 500 ms - referred other EKG findings to Dr. Mccullough and her medical team (nurse has referred it to Dr. Mccullough) - can use Cipro since QTc is not prolonged
--- NOTE | 2018-04-17 23:38 | CARD ---
APPROVED REPORT EKG Measurement Heart [id number] <Conclusion> Normal sinus rhythm with sinus arrhythmia T wave abnormality, consider inferolateral ischemia Abnormal ECG
== END 2018-04-17 14:48 | disposition home or self-care (01) | DRG 690 ==
LOC: ED 15:34 → ERH 20:23 → 5RNO 22:13
PROVIDERS: ADMIT Internal Medicine; ATTEND Internal Medicine
DX: N10 Acute pyelonephritis (principal); B96.20 Unspecified Escherichia coli [E. coli] as the cause of diseases classified elsewhere; D64.9 Anemia, unspecified; J45.909 Unspecified asthma, uncomplicated; N80.9 Endometriosis, unspecified; Z87.440 Personal history of urinary (tract) infections; Z88.1 Allergy status to other antibiotic agents; Z88.8 Allergy status to other drugs, medicaments and biological substances

== ENCOUNTER 2018-07-11 18:47 | Emergency (ER) | payer SELFPAY ==
[2018-07-11 18:47] VITALS: BMI 29.2
[2018-07-11 20:28] VITALS: RESP 18; TEMP 98.3
[2018-07-11 20:42] LABS: BASO # 0.01 K/mm3 (0.0-2.0); BASO % 0.1 % (0.0-3.0); EOS # 0.1 (0.0-0.7); EOS % 0.6 % (1.5-5.0); GRAN # 6.43 (1.4-6.5); GRAN % 74.9 % (50.0-68.0); HEMOGLOBIN 13.6 g/dL (12.0-16.0); LYMPH # 1.4 (1.2-3.4); LYMPH % 16.3 % (22.0-35.0); MEAN CELL VOLUME 85.5 fl (80.0-105.0); MEAN CORPUSCULAR HEMOGLOBIN 29.4 pg (25.0-35.0); MEAN CORPUSCULAR HGB CONC 34.4 g/dl (31.0-37.0); MEAN PLATELET VOLUME 9.8 fl (7.0-11.0); MONO # 0.7 (0.1-0.6); MONO % 8.1 % (1.0-6.0); RBC 4.62 10^6/uL (3.5-6.1); RED CELL DISTRIBUTION WIDTH 13.1 % (11.5-14.5); URINE BILIRUBIN NEGATIVE (NEGATIVE); URINE BLOOD SMALL (NEGATIVE); URINE GLUCOSE (UA) NEGATIVE (NEGATIVE); URINE LEUKOCYTE ESTERASE TRACE Leu/uL (NEGATIVE); URINE PROTEIN NEGATIVE mg/dL (<30 mg/dL); URINE UROBILINOGEN 0.2 E.U./dL (<1 E.U./dL); WHITE BLOOD COUNT 8.6 10^3/ul (4.5-11.0)
[2018-07-11 20:48] LABS: URINE APPEARANCE CLEAR (CLEAR); URINE COLOR YELLOW (YELLOW)
[2018-07-11 20:50] LABS: ALB/GLOB RATIO 1.4 (1.1-1.8); ALBUMIN 4.6 g/dL (3.0-4.8); ALT/SGPT 18 U/L (7-56); AST/SGOT 24 U/L (14-36); BLOOD UREA NITROGEN 7 mg/dL (7-21); CALCIUM 9.6 mg/dL (8.4-10.5); GFR NON-AFRICAN AMERICAN > 60
--- NOTE | 2018-07-11 21:52 | ED PDOC ---
Arrival/HPI - General Chief Complaint: Female Genitourinary Time Seen by Provider: 07/11/18 20:09 Historian: Patient - History of Present Illness Narrative History of Present Illness (Text): 07/11/18 21:53 22-year-old female presents today with lower abdominal pain 1 month that is been gradually worsening. Patient also complaining of nausea with occasional vomiting. Patient states she just found out she was . She is complaining of some urinary frequency. Patient states she has a history of frequent UTIs. She denies back pain. Patient denies dizziness or weakness. Denies chest pain or shortness of breath. Patient denies vaginal bleeding or discharge. Time/Duration: > month Symptom Onset: Gradual Symptom Course: Worsening Quality: Aching, Cramping Severity Level: Mild Past Medical History - Provider Review Nursing Documentation Reviewed: Yes - Travel History Have you recently traveled outside [place] w/in the past 3 mons?: No - Past History Past History: No Previous - Infectious Disease Hx of Infectious Diseases: None - Tetanus Immunization Tetanus Immunization: Up to Date - Cardiac Hx Cardiac Disorders: No - Pulmonary Hx Respiratory Disorders: Yes Hx Asthma: Yes - Neurological Hx Neurological Disorder: No - HEENT Hx HEENT Disorder: No - Renal Hx Renal Disorder: No - Endocrine/Metabolic Hx Endocrine Disorders: No - Hematological/Oncological Hx Blood Disorders: No - Integumentary Hx Dermatological Disorder: No - Musculoskeletal/Rheumatological Hx Musculoskeletal Disorders: No - Gastrointestinal Hx Gastrointestinal Disorders: No - Genitourinary/Gynecological Hx Genitourinary Disorders: No - Psychiatric Hx Psychophysiologic Disorder: No Hx Anxiety: No Hx Bipolar Disorder: No Hx Depression: No Hx Emotional Abuse: No Hx Hallucinations: No Hx Panic Disorder: No Hx Post Traumatic Stress Disorder: No Hx Psychosis: No Hx Physical Abuse: No Hx Schizophrenia: No Hx Sexual Abuse: No Hx Substance Use: No - Past Surgical History Past Surgical History: No Previous - Anesthesia Hx Anesthesia: Yes Hx Anesthesia Reactions: No Hx Malignant Hyperthermia: No - Suicidal Assessment Feels Threatened In Home Enviroment: No Family/Social History - Physician Review Nursing Documentation Reviewed: Yes Family/Social History: Unknown Family HX Smoking Status: Never Smoked Hx Alcohol Use: No Hx Substance Use: No Hx Substance Use Treatment: No Allergies/Home Meds Allergies/Adverse Reactions: Allergies cephalexin [From Keflex] Allergy (Verified 07/11/18 19:53) RASH prochlorperazine [From Compazine] Allergy (Verified 07/11/18 19:53) RASH prochlorperazine edisylate [From Compazine] Allergy (Verified 07/11/18 19:53) RASH prochlorperazine maleate [From Compazine] Allergy (Verified 07/11/18 19:53) RASH Review of Systems - Review of Systems Constitutional: absent: Fatigue, Fevers Respiratory: absent: SOB, Cough Cardiovascular: absent: Chest Pain, Palpitations Gastrointestinal: Abdominal Pain, Nausea, Vomiting. absent: Constipation, Diarrhea Genitourinary Female: Frequency. absent: Dysuria, Hematuria, Vaginal Bleeding, Vaginal Discharge Musculoskeletal: absent: Arthralgias, Back Pain, Neck Pain Skin: absent: Rash, Pruritis Neurological: absent: Headache, Dizziness Psychiatric: absent: Anxiety, Depression, Suicidal Ideation Physical Exam Vital Signs Reviewed: Yes Vital Signs Temp Pulse Resp BP Pulse Ox 07/11/18 19:48 98.3 F 68 18 128/80 100 Temperature: Afebrile Blood Pressure: Normal Pulse: Regular Respiratory Rate: Normal Appearance: Positive for: Well-Appearing, Non-Toxic, Comfortable Pain Distress: None Mental Status: Positive for: Alert and Oriented X 3 - Systems Exam Head: Present: Atraumatic Mouth: Present: Moist Mucous Membranes Neck: Present: Normal Range of Motion Respiratory/Chest: Present: Clear to Auscultation, Good Air Exchange. No: Respiratory Distress, Accessory Muscle Use Cardiovascular: Present: Regular Rate and Rhythm, Normal S1, S2. No: Murmurs Abdomen: Present: Tenderness (minimal suprapubic tenderness), Normal Bowel Sounds. No: Distention, Peritoneal Signs, Rebound, Guarding Genitourinary/Pelvic Exam: Present: Normal External Genitalia, Cervical os Closed, Other (chaparoned by Izabela SOTO). No: Vaginal Discharge, Vaginal Bleeding, Vaginal Lesions, Adenexal Tenderness, Adenexal Mass, Cervical Motion Tendernes, Odor Back: Present: Normal Inspection. No: CVA Tenderness, Midline Tenderness, Paraspinal Tenderness Upper Extremity: Present: Normal ROM Lower Extremity: Present: Normal ROM Neurological: Present: GCS=15, Speech Normal Skin: Present: Warm, Dry, Normal Color. No: Rashes Psychiatric: Present: Alert, Oriented x 3 Medical Decision Making ED Course and Treatment: 07/11/18 21:49 Patient is nontoxic well appearing in no distress. vital signs are stable. CBC: wnl CMP: wnl Beta hC TYPE AND SCREEN: o+ Urinalysis: + leukocytes, [id number] Ultrasound:FINDINGS: Gestation: An intrauterine gestational sac is seen with thick gomez. A yolk sac is present measuring 2.3 mm. A pole is seen measuring 2.6 mm 5 weeks 6 days KANG 03/07/2019 Examination does not show cardiac activity which may relate to early age. The gestational sac measures 1.6 cm corresponding to 5 weeks 6 days. Placenta/amniotic fluid: Cannot be adequately evaluated due to the early gestational age. Uterus/cervix: The uterus measures 7.1 cm x 5.6 cm x 5.4 cm. No myometrial mass. Ovaries: The RIGHT ovary measures 2.1 cm x 1.3 cm x 1.1 cm and shows unremarkable blood flow. The LEFT ovary measures 1.3 cm x 1 cm x 0.99 cm and shows normal blood flow. No mass. Free fluid: No free fluid. IMPRESSION: 1. Single living intrauterine . 2. Gestational age 5 weeks 6 days KANG 03/07/2019 3. Negative for cardiac activity likely early age. 4. Negative exam of the ovaries pt is non toxic well appearing; no distress. stable vitals. eating [employer] in er. Discussed all the results the patient. advised f/u with the solar energy engineer within the next 2 days. advised immediate return if symptoms worsen,persist or if new symptoms develop. advised taking macrobid for UTI. advised taking vitamins. advised patient to take diclegis for nausea, jessie and small frequent meals. Patient verbalizes understanding of discharge instructions and need for immediate followup. all aspects of this case were discussed the attending of record. Impression: threatened , UTI Tylenol every 4 hours as needed for pain macrobid; 1 tablet twice daily x 10 days. Increase fluids Followup with the cabinet abrasive sandblaster within the next 2 days Return immediately if symptoms worsen persist or if new symptoms develop: High fevers, heavy bleeding, severe abdominal pain, vomiting, diarrhea, dizziness or weakness or any other concerning symptoms develop. Take vitamins daily. Reassessment Condition: Re-examined, Improved - Lab Interpretations Lab Results: 07/11/18 20:10 07/11/18 20:10 Lab Results 07/11/18 20:10: WBC 8.6 D, RBC 4.62, Hgb 13.6, Hct 39.5, MCV 85.5, MCH 29.4, MCHC 34.4, RDW 13.1, Plt Count 227, MPV 9.8, Gran % 74.9 H, Lymph % (Auto) 16.3 L, [place] % (Auto) 8.1 H, Eos % (Auto) 0.6 L, Baso % (Auto) 0.1, Gran # 6.43, Lymph # (Auto) 1.4, [place] # (Auto) 0.7 H, Eos # (Auto) 0.1, Baso # (Auto) 0.01 07/11/18 20:10: Blood Type O POSITIVE, Antibody Screen Negative, BBK History Checked Patient has bt 07/11/18 20:10: Beta HCG, Quant 28739.00 H 07/11/18 20:10: Sodium 138, Potassium 4.0, Chloride 101, Carbon Dioxide 24, Anion Gap 17, BUN 7, Creatinine 0.6 L, Est GFR ( Amer) > 60, Est GFR (Non -Af Amer) > 60, Random Glucose 88, Calcium 9.6, Total Bilirubin 1.1, AST 24, ALT 18, Alkaline Phosphatase 80, Total Protein 8.0, Albumin 4.6, Globulin 3.4, Albumin/Globulin Ratio 1.4 07/11/18 20:10: Urine Color Yellow, Urine Appearance Clear, Urine pH 6.0, Ur Specific [place] 1.025, Urine Protein Negative, Urine Glucose (UA) Negative, Urine Ketones Trace H, Urine Blood Small H, Urine Nitrate Negative, Urine Bilirubin Negative, Urine Urobilinogen 0.2, Ur Leukocyte Esterase Trace H, Urine RBC 5 - 10, Urine WBC 2 - 5, Ur Epithelial Cells 10 - 12 - RAD Interpretation Radiology Orders: 07/11/18 20:09 OB TRANSVAGINAL [US] Stat - Medication Orders Current Medication Orders: Discontinued Medications Nitrofurantoin Macrocrystals (Macrobid) 100 mg PO STAT STA PRN Reason: Protocol Stop: 07/11/18 21:59 Disposition/Present on Arrival - Present on Arrival Any Indicators Present on Arrival: No History of DVT/PE: No History of Uncontrolled Diabetes: No Urinary Catheter: No History of Decub. Ulcer: No History Surgical Site Infection Following: None - Disposition Have Diagnosis and Disposition been Completed?: Yes Diagnosis: Threatened , Urinary tract infection Disposition: HOME/ ROUTINE Disposition Time: 21:51 Patient Plan: Discharge Patient Problems: Current Active Problems Problem Status Onset Threatened Acute Urinary tract infection Acute Condition: GOOD Discharge Instructions (ExitCare): Urinary Tract Infections in Adults, Threatened Miscarriage Additional Instructions: Tylenol every 4 hours as needed for pain macrobid; 1 tablet twice daily x 10 days. Increase fluids Followup with the cabinet abrasive sandblaster within the next 2 days Return immediately if symptoms worsen persist or if new symptoms develop: High fevers, heavy bleeding, severe abdominal pain, vomiting, diarrhea, dizziness or weakness or any other concerning symptoms develop. Take vitamins daily. Prescriptions: Doxylamine/Pyridoxine HCl (B6) [Diclegis Dr 10-10 mg Tablet] 2 tab PO HS #8 tab Nitrofurantoin Macrocrystals [Macrobid] 100 mg PO BID #20 cap Multivit/Folic Acid/I [ Plus] 1 tab PO DAILY #30 tab Referrals: Amado Mota [Medical Doctor] - [facility] - Follow up with primary Forms: [facility] (Persian), WORK NOTE
[2018-07-11 22:55] VITALS: BP 112/79; PULSE 70; O2SAT 99
--- NOTE | 2018-07-12 10:56 | US ---
Date of service: 07/11/2018 PROCEDURE: OB Pelvic Ultrasound HISTORY: pain COMPARISON: None available. FINDINGS: UTERUS: Single intrauterine gestation. CRL measures 0.26 cm equivalent to 5 weeks and 6 days gestatioin Gestational sac diameter measures 1.61 cm equivalent to 5 weeks and 6 days gestation age (Ultrasound estimated): 5 weeks and 6 days Date of delivery (Ultrasound estimated) : 03/07/2019 Heart rate: No cardiac activity documented on B-mode . Dasia-gestational hemorrhage: None. Uterus measures 7.1 x 5.6 x 5.4 cm. No mass CERVIX: Long and closed. No cervical abnormality seen. RIGHT OVARY: Measures 2.1 x 1.3 x 1.1 cm. No mass. Normal flow. LEFT OVARY: Measures 1.3 x 1.0 x 10.9 cm. No mass. Normal flow. FREE FLUID: Trace fluid in the cul de sac. OTHER FINDINGS: None. IMPRESSION: Single intrauterine gestational sac with mean gestational age of 5 weeks and 6 days. The estimated date of delivery by ultrasound is 03/07/2019. No cardiac activity is documented on B-mode likely due to early gestation. Clinical and imaging follow-up is recommended to confirm viability. A preliminary report was provided by [facility].
== END 2018-07-11 22:55 | disposition home or self-care (01) ==
LOC: ED 18:47
DX: O23.41 Unspecified infection of urinary tract in pregnancy, first trimester (principal); O20.0 Threatened abortion; Z3A.01 Less than 8 weeks gestation of pregnancy